=== PATIENT | male | born 1930 | race Caucasian/White ===

== ENCOUNTER 2020-05-14 07:51 | Emergency (ER) | payer MEDICARE, OTHER ==
--- NOTE | 2020-05-14 08:14 | RAD ---
RADIOGRAPH CHEST 1 VIEW: DATE: 05/14/2020 HISTORY: 89-year-old male status post fall. Hypertension. FINDINGS: The thoracic aorta is tortuous and ectatic. There is no evidence of airspace density, pulmonary edema , or pneumothorax. The lateral costophrenic angles are not effaced. No cardiomegaly. IMPRESSION: 1) No acute pulmonary findings. 2) ectasia of thoracic aorta.
[2020-05-14 08:26] LABS: #Lymphocytes 0.8 thou/uL (1.20-3.40); #Monocytes 0.5 thou/uL (0.11-0.59); #Neutrophils 2.7 thou/uL (1.40-6.50); %Basophils 0.8 % (0.0-1.0); %Eosinophils 0.4 % (0.0-10.0); %Lymphocytes 20.5 % (21.0-51.0); %Monocytes 13.2 % (0.0-10.0); %Neutrophils 65.2 % (42.0-75.0); Hemoglobin 12.9 g/dL (14.0-18.0); Mean Corpuscular HGB CONC 33.4 g/dL (32.0-36.0); Mean Corpuscular Hemoglobin 31.7 pg (27.0-31.0); Mean Corpuscular Volume 94.9 fL (78.0-98.0); Mean Platelet Volume 6.4 fL (7.4-10.4); Platelet Count 168 thou/uL (130-400); RBC Distribution Width 11.8 % (11.5-14.5); Red Blood Cell (RBC) Count 4.06 mill/uL (4.70-6.10); White Blood Cell (WBC) Count 4.1 thou/uL (4.8-10.8)
--- NOTE | 2020-05-14 08:44 | CT ---
CT BRAIN NONCONTRAST: DATE: 05/14/2020 HISTORY: 89-year-old male with altered mental status, status post acute head trauma from fall. COMPARISON: 08/30/2015 FINDINGS: There is no evidence of acute intra-axial or extra-axial hemorrhage. There is no midline shift or any other mass effect. There is no extra-axial fluid collection. Chronic ventriculomegaly. There is no evidence of obstructive hydrocephalus. Calvarium is intact. There is diffuse brain parenchymal volume loss. There are low attenuation areas in the white matter. These are nonspecific, but in a patient of this age, they are probably chronic ischemic white matter changes due to microvascular atheroscler osis. No interval change overall. Paranasal sinuses and bilateral tympanomastoid cavities, are clear. IMPRESSION: 1) No acute intracranial findings. 2) involutional changes and chronic ischemic white matter changes.
[2020-05-14 08:47] LABS: ALT (SGPT) 10 U/L (8-55); AST (SGOT) 12 U/L (5-34); Acetaminophen Less than 6.0 mcg/mL (10.0-30.0); Albumin 3.7 g/dL (3.4-4.8); Alcohol Less than 10 mg/dL (Less than 10); Alkaline Phosphatase 81 U/L (40-110); Anion Gap 12 mmol/L (10-20); BUN (Urea Nitrogen) 31 mg/dL (8.4-25.7); Bilirubin, Total 0.4 mg/dL (0.2-1.2); CK (CPK) 61 U/L (30-200); Calc. Creatinine Clearance 0 mL/min (70-130); Calcium 8.3 mg/dL (7.8-10.44); Carbon Dioxide 24 mmol/L (23-31); Chloride 105 mmol/L (98-107); Estimated GFR-MDRD 34; Globulin 4.5 g/dL (2.4-3.5); Glucose 103 mg/dL (83-110); Lipase 117 U/L (8-78); Potassium 4.1 mmol/L (3.5-5.1); Protein, Total 8.2 g/dL (5.8-8.1); Salicylate Less than 8.0 mg/dL (15.0-30.0); Sodium 137 mmol/L (136-145)
[2020-05-14 09:07] LABS: CKMB 1.9 ng/mL (0-6.6)
[2020-05-14 09:34] LABS: Benzodiazepine Screen Detected (NotDetected); Medtox Reader # READER 4; Opiate Screen Detected (NotDetected); Phencyclidine (PCP) Not Detected (NotDetected); THC/Cannabinoid Screen Not Detected (NotDetected)
[2020-05-14 09:35] LABS: Amphetamine Not Detected (NotDetected); Barbiturates Screen Not Detected (NotDetected); Cocaine Metabolite Screen Not Detected (NotDetected); Medtox Control Line Valid? VALID (VALID); Methadone Not Detected (NotDetected); Methamphetamine Not Detected (NotDetected); Oxycodone Screen Not Detected (NotDetected); Tricyclic Screen Not Detected (NotDetected)
[2020-05-14 09:39] LABS: Bacteria/HPF None Seen HPF (None Seen); Bilirubin Negative (Negative); Blood, Urine Trace (Negative); Clarity Clear (Clear); Glucose, Urine (Dipstick) Normal (Negative); Ketone, Urine Negative (Negative); Leukocyte Negative Leu/uL (Negative); Nitrite Negative (Negative); Protein, Urine (Dipstick) 100 mg/dL (Neg-Trace); RBC/HPF 0-3 HPF (0-3); Specific Gravity, Urine 1.015 (1.002-1.036); Squamous Epithelial 0-3 HPF (0-3); Urobilinogen Normal mg/dL (Less than 2); WBC/HPF 0-3 HPF (0-3); pH, Urine 5.5 (5.0-9.0)
--- NOTE | 2020-05-14 10:42 | CT ---
CT ANGIOGRAM CHEST WITH 3D RENDERING: Date: 05/14/2020 HISTORY: Injury from a fall, generalized weakness. Elevated D-Dimer. FINDINGS: There are extensive, fairly diffuse bilateral very faint ground-glass opacity changes versus a very a ccentuated mosaic appearance of the chest, with some linear and interstitial parenchymal changes note d as well, particularly in the mid and lower lung zones. Evidence for nonspecific chronic change vers us subsegmental atelectasis. Three vessel coronary artery calcific disease. No convincing evidence fo r acute pulmonary embolism. No pleural effusion or pericardial effusion. Multiple gallstones within t he dependent portion of the gallbladder, which is borderline distended, but no pericholecystic fat st randing or edematous changes. Small left renal upper pole cyst. IMPRESSION: 1. Extensive patchy very faint ground-glass opacity changes versus extensive mosaic appearance of th e chest, nonspecific. Minimal scattered linear and interstitial parenchymal changes, particularly in the mid and lower lung zones, possibly chronic change and/or subsegmental atelectasis. 2. No convincing CT evidence for acute pulmonary embolism. 3. Cholelithiasis within a distended gallbladder, but no gallbladder wall thickening or pericholecys tic fluid. 4. Other findings as above. POS: RRE
[2020-05-14] MEDS ORDERED: Iopamidol-370 76% 500 ML 1 ML ONE (14:52)
[2020-05-15 12:33] LABS: SARS-CoV-2 MS2 Positive; SARS-CoV-2 N Gene Negative; SARS-CoV-2 S Gene Negative; SARS-CoV-2 orf1ab Negative
== END 2020-05-14 11:10 | disposition home or self-care (01) ==
LOC: ERS 07:51
DX: R53.1 Weakness (principal); R51 Headache; J84.9 Interstitial pulmonary disease, unspecified; Z20.828 Contact with and (suspected) exposure to other viral communicable diseases; I10 Essential (primary) hypertension; Z79.899 Other long term (current) drug therapy
CPT/HCPCS: 70450; 71045; 71275; 80053; 80306; 80307; 82550; 82553; 83690; 84484; 85025; 85379; 93005; 96360; 99285; U0003; 36415; 81003; 81015; 87635; Q9967

== ENCOUNTER 2020-10-12 06:20 | Inpatient (IN) | payer MEDICARE ==
[2020-10-12] MEDS ORDERED: Nitroglycerin 2% Ointment 1 INCH/1 GM Packet ONE (06:37)
[2020-10-12 06:51] LABS: #Monocytes 0.5 thou/uL (0.11-0.59); #Neutrophils 2.2 thou/uL (1.40-6.50); %Basophils 0.3 % (0.0-1.0); %Eosinophils 0.1 % (0.0-10.0); %Lymphocytes 27.1 % (21.0-51.0); %Monocytes 12.8 % (0.0-10.0); %Neutrophils 59.7 % (42.0-75.0); Hemoglobin 12.6 g/dL (14.0-18.0); Mean Corpuscular HGB CONC 33.6 g/dL (32.0-36.0); Mean Corpuscular Hemoglobin 32.2 pg (27.0-31.0); Mean Platelet Volume 6.5 fL (7.4-10.4); Platelet Count 163 thou/uL (130-400); RBC Distribution Width 11.9 % (11.5-14.5); Red Blood Cell (RBC) Count 3.91 mill/uL (4.70-6.10); White Blood Cell (WBC) Count 3.7 thou/uL (4.8-10.8)
[2020-10-12 07:11] LABS: ALT (SGPT) 9 U/L (8-55); AST (SGOT) 12 U/L (5-34); Albumin 3.8 g/dL (3.4-4.8); Alkaline Phosphatase 93 U/L (40-110); Anion Gap 15 mmol/L (10-20); BUN (Urea Nitrogen) 38 mg/dL (8.4-25.7); Bilirubin, Total 0.3 mg/dL (0.2-1.2); CK (CPK) 78 U/L (30-200); Calc. Creatinine Clearance 0 mL/min (70-130); Calcium 7.9 mg/dL (7.8-10.44); Carbon Dioxide 25 mmol/L (23-31); Chloride 106 mmol/L (98-107); Globulin 4.2 g/dL (2.4-3.5); Glucose 115 mg/dL (83-110); Potassium 4.3 mmol/L (3.5-5.1); Sodium 142 mmol/L (136-145)
--- NOTE | 2020-10-12 07:31 | CT ---
Head CT without contrast 10/12/2020: COMPARISON: 05/14/2020 HISTORY: Diffuse pain, drooping of the right side of the face TECHNIQUE: Axial CT imaging at 5 mm intervals from vertex through skull base without contrast FINDINGS: Imaged paranasal sinuses and mastoid air cells appear well-aerated. There is atheroscleroti c calcification of the distal vertebral arteries and the cavernous carotid arteries. No acute osseous abnormality. There is stable periventricular hypodensity suggesting small vessel disease. Stable cerebral volume l oss with associated prominence of the CSF containing spaces. No intracranial hemorrhage, midline shift, or mass effect. IMPRESSION: Stable CT of the head-no acute findings.
[2020-10-12 07:33] LABS: CKMB 2.1 ng/mL (0-6.6)
--- NOTE | 2020-10-12 07:50 | RAD ---
Portable frontal chest radiograph: 10/12/2020 COMPARISON: 05/14/2020 HISTORY: Chest pain FINDINGS: Stable heart and mediastinal contours. Atherosclerotic calcification of the aortic arch not ed. Stable nonspecific linear density in the left base and bilateral perihilar regions. Mild elevation of the right hemidiaphragm. No pneumothorax or pleural fluid. No focal consolidation or alveolar edema. IMPRESSION: Stable appearance of the chest as detailed above.
[2020-10-12 08:28] LABS: Bacteria/HPF None Seen HPF (None Seen); Bilirubin Negative (Negative); Blood, Urine Trace (Negative); Clarity Clear (Clear); Glucose, Urine (Dipstick) Normal (Negative); Ketone, Urine Negative (Negative); Leukocyte Negative Leu/uL (Negative); Nitrite Negative (Negative); Protein, Urine (Dipstick) 200 mg/dL (Neg-Trace); RBC/HPF 0-3 HPF (0-3); Specific Gravity, Urine 1.019 (1.002-1.036); Squamous Epithelial 0-3 HPF (0-3); Urobilinogen Normal mg/dL (Less than 2); WBC/HPF 0-3 HPF (0-3)
[2020-10-12 10:30] LABS: Troponin I 3.238 ng/mL (< 0.028)
[2020-10-12] MEDS ORDERED: Aspirin 325 mg Enteric Coated Tablet PO SCH (11:00)
[2020-10-12] MEDS ORDERED: Acetaminophen 500 MG TAB PO PRN (11:22)
[2020-10-12] MEDS ORDERED: hydrALAZINE 20 MG/ML VIAL SLOW IVP PRN (11:22)
[2020-10-12] MEDS ORDERED: Labetalol HCl 100 MG/20 ML VIAL SLOW IVP PRN (11:22)
--- NOTE | 2020-10-12 11:24 | PDOC.HHP ---
Hospitalist HPI - History of Present Illness History of Present Illness: ADMISSION DATE: 10/12/2020 TIME OF ASSESSMENT: 1030 PRIMARY CARE PHYSICIAN: Zac Driver CHIEF COMPLAINT: Pain all over HPI: Patient is a 89-year-old male past medical history significant for hypertension and a SC. He states that this morning he woke up and had an overall feeling of pain throughout his entire body. He states that even in his jaw and teeth he felt this pain. He told his about it and she felt he might be having a heart attack so they came into the ER. He denies exposure to Covid, fever, shortness of breath, cough. He states he has never experienced pain like this before. Since being in the ER the pain has resolved and he states he feels "fine". ED COURSE: Vital Signs: Blood pressure 129/80, pulse 64, respiratory rate 20, temp 97.9 oral, no pain, O2 saturation 94% on 2 L Today in the ER he had an EKG, chest x-ray, urinalysis, head CT completed. He was administered aspirin 324 mg oral, half a liter of normal saline IV, and nitro 1 inch transdermal. PAST MEDICAL HISTORY: Hypertension, TIA, facial droop at baseline PAST SURGICAL HISTORY: Left total knee replacement SOCIAL HISTORY: Patient lives at home with his of 67 years. Patient uses a cane to ambulate. They deny alcohol, drug, tobacco use. FAMILY HISTORY: Son with Jordy lao ALLERGIES: No known drug allergies CURRENT MEDICATIONS: Patient and are unable to recall his home medications, will work with pharmacy to reconcile list Hospitalist ROS - Review of Systems Constitutional: reports: malaise Cardiovascular: reports: chest pain All other systems reviewed; all pertinent +/- noted in HPI/Subj - Exam General Appearance: NAD, awake alert Neck: supple, symmetric Heart: RRR, no murmur, no gallops, no rubs, normal peripheral pulses Respiratory: CTAB, no wheezes, no rales, no ronchi, normal chest expansion Gastrointestinal: soft, non-tender, non-distended, normal bowel sounds Extremities: no edema Neurological: no focal deficits Musculoskeletal: normal tone Psychiatric: normal affect, normal behavior, A&O x 3 Hospitalist Results - Labs Result Diagrams: 10/12/20 06:41 10/12/20 06:41 Lab results: WBC 3.7 thou/uL (4.8-10.8) L 10/12/20 06:41 Hgb 12.6 g/dL (14.0-18.0) L 10/12/20 06:41 Hct 37.5 % (42.0-52.0) L 10/12/20 06:41 MCV 96.0 fL (78.0-98.0) 10/12/20 06:41 Plt Count 163 thou/uL (130-400) 10/12/20 06:41 Neutrophils % 59.7 % (42.0-75.0) 10/12/20 06:41 Sodium 142 mmol/L (136-145) 10/12/20 06:41 Potassium 4.3 mmol/L (3.5-5.1) 10/12/20 06:41 Chloride 106 mmol/L (98-107) 10/12/20 06:41 Carbon Dioxide 25 mmol/L (23-31) 10/12/20 06:41 BUN 38 mg/dL (8.4-25.7) H 10/12/20 06:41 Creatinine 2.38 mg/dL (0.7-1.3) H 10/12/20 06:41 Glucose 115 mg/dL (83-110) H 10/12/20 06:41 Calcium 7.9 mg/dL (7.8-10.44) 10/12/20 06:41 Total Bilirubin 0.3 mg/dL (0.2-1.2) 10/12/20 06:41 AST 12 U/L (5-34) 10/12/20 06:41 ALT 9 U/L (8-55) 10/12/20 06:41 Alkaline Phosphatase 93 U/L (40-110) 10/12/20 06:41 Creatine Kinase 78 U/L (30-200) 10/12/20 06:41 CK-MB (CK-2) 2.1 ng/mL (0-6.6) 10/12/20 06:41 Troponin I 3.238 ng/mL (< 0.028) H* 10/12/20 09:51 B-Natriuretic Peptide 278.1 pg/mL (0-100) H 10/12/20 06:41 Serum Total Protein 8.0 g/dL (5.8-8.1) 10/12/20 06:41 Albumin 3.8 g/dL (3.4-4.8) 10/12/20 06:41 Urine Ketones Negative mg/dL (Negative) 10/12/20 07:40 Urine Blood Trace (Negative) A 10/12/20 07:40 Urine Nitrite Negative (Negative) 10/12/20 07:40 Ur Leukocyte Esterase Negative Bryon/uL (Negative) 10/12/20 07:40 Urine RBC 0-3 HPF (0-3) 10/12/20 07:40 Urine WBC 0-3 HPF (0-3) 10/12/20 07:40 Ur Squamous Epith Cells 0-3 HPF (0-3) 10/12/20 07:40 Urine Bacteria None Seen HPF (None Seen) 10/12/20 07:40 - EKG Interpretation EKG: PVC 77bpm - Radiology Interpretation Chest x-ray Status: image reviewed by me, report reviewed by me Additional Comment: FINDINGS: Stable heart and mediastinal contours. Atherosclerotic calcification of the aortic arch noted. Stable nonspecific linear density in the left base and bilateral perihilar regions. Mild elevation of the right hemidiaphragm. No pneumothorax or pleural fluid. No focal consolidation or alveolar edema. IMPRESSION: Stable appearance of the chest as detailed above. CT scan - head Status: report reviewed by me Additional Comment: FINDINGS: Imaged paranasal sinuses and mastoid air cells appear well-aerated. There is atherosclerotic calcification of the distal vertebral arteries and the cavernous carotid arteries. No acute osseous abnormality. There is stable periventricular hypodensity suggesting small vessel disease. Stable cerebral volume loss with associated prominence of the CSF containing spaces. No intracranial hemorrhage, midline shift, or mass effect. IMPRESSION: Stable CT of the head-no acute findings. Hospitalist H&P A/P - Plan Plan: NSTEMI Troponin 0.126 initially then elevated to 3.238denies chest pain or shortness of breath currently Cardiology consult Has received full dose aspirin in ER Nitro patch in place Magnesium and TSH ordered Continue to trend troponins Monitor on telemetry Vital signs every 4 hour SUSANNE on CKD Creatinine elevated to 2.38previous in May was 1.88 GFR 26 todaypreviously was in the 30s range Gentle hydration Hypertension Monitor vital signs every 4 hours Restart home medications once confirmed As needed antihypertensives available VTE prophylaxis in place with SCDs CODE STATUS: DNR Patient is have advanced directives in place that state neither want to be resuscitated if such an unfortunate event were to arise, states that family knows of their wishes and that they wish to honor that with each other Surrogate decision maker is his Briana
[2020-10-12 11:52] VITALS: BMI 22.8
[2020-10-12] MEDS: Sodium Chloride 0.9% 1,000 ML IV SCH (12:56)
[2020-10-12 13:15] LABS: Troponin I 7.391 ng/mL (< 0.028)
[2020-10-12] MEDS ORDERED: Heparin 25,000 units/D5W 500 ML IVPB SCH (13:30)
[2020-10-12] MEDS ORDERED: Heparin 10,000 UNITS/ 10 ML VIAL SLOW IVP SCH (13:30)
[2020-10-12 14:02] LABS: Hemoglobin 10.9 g/dL (14.0-18.0); Platelet Count 145 thou/uL (130-400)
[2020-10-12] MEDS: Nitroglycerin 2% Ointment 1 INCH/1 GM Packet TOP SCH ×2 (18:30→21:21)
[2020-10-12 19:40] LABS: PTT 127.2 sec (22.9-36.1)
[2020-10-12 20:02] LABS: Troponin I 10.343 ng/mL (< 0.028)
--- NOTE | 2020-10-12 23:13 | CON ---
DATE OF CONSULTATION: PRIMARY DELIVERY PERSON: Dr. Keira Crockett. REASON FOR CONSULTATION: Non-ST elevation myocardial infarction. HISTORY OF PRESENT ILLNESS: Mr. Douglas Robles is a very pleasant gentleman with history of coronary artery disease. Unfortunately [employer] is down and all the details are in terms of the reports that are available. The patient does have a history of coronary artery disease. The patient was seen most recently in the office by Annie. He was stable at that time with no chest pain or pressure. MEDICATIONS: 1. Amlodipine 5 mg a day. 2. Toprol-XL 100 mg a day. 3. Aspirin 81 mg a day. Cardiac catheterization was done in the past. There was angioplasty of an obtuse marginal in 1997. Otherwise, the patient has been doing well. REVIEW OF SYSTEMS: CONSTITUTIONAL: Feels awake and alert now. VISION: No changes. HEARING: No changes. PULMONARY: No cough or wheezing. GASTROINTESTINAL: No nausea, vomiting, diarrhea. SKIN: No rashes. NEUROLOGIC: No unilateral weakness or numbness. PSYCHIATRIC: No unusual depression, anxiety. PHYSICAL EXAMINATION: VITAL SIGNS: His blood pressure 130/60, pulse 64 and regular. LUNGS: Clear. CARDIAC: Normal S1, normal S2. ABDOMEN: Soft and nontender. EXTREMITIES: There is no edema. EKG shows no acute changes. Troponin level 7.39. Creatinine 2.38. ASSESSMENT: 1. Status post tlh-WL-[id number] myocardial infarction, asymptomatic now. 2. Renal failure stage 4. PLAN: 1. He is on intravenous heparin. 2. He is on aspirin. 3. Dr. Crockett to resume tomorrow for further therapy. Unfortunately, computer is completely down right now, therefore, no other report could be accessed. Dr. Crockett will check tomorrow. Job ID: [id number]
[2020-10-13] MEDS: Nitroglycerin 0.4 MG TAB (25 Tab Bottle) SL PRN ×3 (00:33→00:50)
[2020-10-13 01:54] LABS: Critical Call Chem Troponin I RESULT DECREASING
[2020-10-13 05:20] LABS: Anion Gap 15 mmol/L (10-20); BUN (Urea Nitrogen) 31 mg/dL (8.4-25.7); Calc. Creatinine Clearance 27 mL/min (70-130); Calcium 7.6 mg/dL (7.8-10.44); Carbon Dioxide 20 mmol/L (23-31); Cardiac Risk 4.9 (Less than 4.5); Chloride 109 mmol/L (98-107); Cholesterol 143 mg/dl (< 200 Desired); Glucose 109 mg/dL (83-110); HDL Cholesterol 29 mg/dL (>60 Neg Risk); LDL Cholesterol, Calculated 90 mg/dL; Potassium 4.2 mmol/L (3.5-5.1); Sodium 140 mmol/L (136-145); Triglycerides 121 mg/dL (Less than 150)
[2020-10-13 05:32] LABS: Critical Call Chem Troponin I RESULT DECREASING
[2020-10-13 05:48] LABS: Band 13 % (5-11); Hemoglobin 11.1 g/dL (14.0-18.0); Lymphocytes 27 % (21-51); MDiff Complete? YES; Mean Corpuscular HGB CONC 34.8 g/dL (32.0-36.0); Mean Corpuscular Hemoglobin 33.2 pg (27.0-31.0); Mean Corpuscular Volume 95.4 fL (78.0-98.0); Mean Platelet Volume 6.6 fL (7.4-10.4); Monocytes 12 % (0-10); Neutrophil 48 % (42-75); Platelet Count 146 thou/uL (130-400); RBC Distribution Width 11.8 % (11.5-14.5); Red Blood Cell (RBC) Count 3.33 mill/uL (4.70-6.10); White Blood Cell (WBC) Count 4.8 thou/uL (4.8-10.8)
[2020-10-13] MEDS: Nitroglycerin 2% Ointment 1 INCH/1 GM Packet TOP SCH ×2 (05:53→14:27)
[2020-10-13 05:55] LABS: CKMB 17.1 ng/mL (0-6.6)
[2020-10-13] MEDS: Sodium Chloride 0.9% 1,000 ML IV SCH (08:41)
[2020-10-13] MEDS ORDERED: Aspirin 325 mg Enteric Coated Tablet PO SCH (09:00)
[2020-10-13 09:42] LABS: SARS-CoV-2 MS2 Positive; SARS-CoV-2 N Gene Negative; SARS-CoV-2 S Gene Negative; SARS-CoV-2 by NAA Not Detected (NotDetected); SARS-CoV-2 orf1ab Negative
--- NOTE | 2020-10-13 10:28 | PDOC.HOSPP ---
- Subjective Encounter Date: 10/13/20 Encounter Time: : Subjective: Patient seen for follow-up today for NSTEMI and SUSANNE superimposed on CKD. Patient is slightly confused this morning, he is oriented to person and time even to date however is not oriented to place. He states this is a political scam and that he is in a mobile home. His son in the room and he recognized him immediately. His son, SAYRA, states that the patient's father had Alzheimer's and that at times Mr. Robles will become confused to place. Patient states he is feeling well today, no overnight events reported. Chart and medications reviewed at this time. - Objective Vital Signs & Weight: Vital Signs (12 hours) Temp Pulse Resp BP BP Pulse Ox 10/13/20 07:44 97.6 F 99 18 138/89 96 10/13/20 03:47 98.2 F 73 18 139/72 95 10/12/20 23:50 66 167/77 H Weight Weight 159 lb I&O: 10/12/20 10/13/20 10/14/20 06:59 06:59 06:59 Intake Total 840 Output Total 500 Balance 340 Result Diagrams: 10/13/20 04:33 10/13/20 04:33 EKG Reviewed by me: Yes Hospitalist ROS - Medication Medications: Active Medications Generic Name Dose Route Start Last Admin Trade Name Freq PRN Reason Stop Dose Admin Acetaminophen 1,000 mg 10/12/20 11:22 10/12/20 21:34 Acetaminophen 500 Mg Tab PO 1,000 mg Q6H PRN Administration Mild Pain (1-3) Aspirin 325 mg 10/13/20 09:00 10/13/20 08:41 Aspirin 325 Mg Enteric Coated Tablet PO 325 mg DAILY SETH Administration Heparin Sodium (Porcine) 0 units 10/12/20 13:30 10/13/20 02:49 Heparin 10,000 Units/ 10 Ml Vial SLOW IVP 2,000 unit ASDIR SETH Administration Protocol Sodium Chloride 1,000 mls @ 50 mls/hr 10/12/20 10:45 10/13/20 08:41 Normal Saline 0.9% IV 1,000 mls .Q20H SETH Administration Nitroglycerin 0.5 inch 10/12/20 14:00 10/13/20 05:53 Nitroglycerin 2% Ointment 1 Inch/1 Gm Packet TOP 0.5 inch Q8HR SETH Administration Nitroglycerin 0.4 mg 10/12/20 11:22 10/13/20 00:50 Nitroglycerin 0.4 Mg Tab (25 Tab Bottle) SL 1 tab Q5MIN PRN Administration Chest Pain - Exam General Appearance: NAD, awake alert ENT: normocephalic atraumatic Heart: RRR, no murmur, no gallops, no rubs Respiratory: CTAB, no wheezes, no rales, no ronchi, no tachypnea Gastrointestinal: soft, non-tender, non-distended, normal bowel sounds Extremities: no edema Neurological: no focal deficits Psychiatric: normal behavior (Very friendly and conversive), oriented to person, oriented to time Hosp A/P - Plan NSTEMI Currently on heparin drip Cardiology consult- Dr Crockett following patient today- await recommendations Continue aspirin Nitro patch to continue Monitor on telemetry Vital signs every 4 hour SUSANNE on CKD Gentle hydration Slight improvement in renal function this am- back to baseline levels Hypertension Monitor vital signs every 4 hours Home medications restarted As needed antihypertensives available
[2020-10-13 16:01] VITALS: BP 165/79; TEMP 98.8
[2020-10-13] MEDS ORDERED: Clopidogrel Bisulfate 75 MG TAB PO SCH (17:00)
--- NOTE | 2020-10-13 18:39 | PDOC.DS.DS ---
Provider - Provider Date of Admission: 10/12/20 11:09 Date of Discharge: 10/13/20 Admitting Provider: Luis Marks MD Consultations: Cardiology Primary Care Physician: Zac Driver MD Course - Hospital Course Hospital Course: Patient is a 89-year-old male past medical history significant for hypertension and [place]. He woke up yesterday and had overall feeling of pain throughout his entire body. He arrived to the ER and felt that he might be having a heart attack. Troponins resulted high and cardiology was consulted. Patient was started on a heparin drip and monitored on telemetry overnight. Echo was completed morning of discharge that showed EF of 50 to 55%. Treatment plans were discussed with family at bedside. It was decided to do medical management versus having a heart cath. Cardiology changed some of his medications and amadeo salazar was comfortable with going home. Patient is to have a follow-up with his primary care doctor and cardiology as discussed in discharge. - Labs Lab Results: 10/13/20 04:33 10/13/20 04:33 Abnormal Lab Results - Last 48 hrs 10/12/20 06:41: WBC 3.7 L, RBC 3.91 L, Hgb 12.6 L, Hct 37.5 L, MCH 32.2 H, MPV 6.5 L, Monocytes % 12.8 H, Lymphocytes # 1.0 L 10/12/20 06:41: Troponin I 0.126 H 10/12/20 06:41: BUN 38 H, Creatinine 2.38 H, Globulin 4.2 H, Albumin/Globulin Ratio 0.9 L 10/12/20 06:41: B-Natriuretic Peptide 278.1 H 10/12/20 07:40: Urine Protein 200 A, Urine Blood Trace A 10/12/20 09:51: Troponin I 3.238 H* 10/12/20 12:17: Troponin I 7.391 H* 10/12/20 13:32: Hgb 10.9 L, Hct 31.9 L 10/12/20 15:15: Troponin I 10.343 H* 10/12/20 19:15: APTT 127.2 H* 10/13/20 01:16: APTT 51.5 H 10/13/20 01:16: CK-MB (CK-2) 21.0 H*, Troponin I 5.136 H* 10/13/20 04:33: Chloride 109 H, Carbon Dioxide 20 L, BUN 31 H, Creatinine 1.91 H, Calcium 7.6 L 10/13/20 04:33: RBC 3.33 L, Hgb 11.1 L, Hct 31.8 L, MCH 33.2 H, MPV 6.6 L, Band Neuts % (Manual) 13 H, Monocytes % (Manual) 12 H 10/13/20 04:33: CK-MB (CK-2) 17.1 H*, Troponin I 4.987 H* 10/13/20 09:37: APTT 80.6 H 10/13/20 15:23: APTT 67.6 H - Physical Exam Vitals: Vital Signs (12 hours) Temp Pulse Resp BP BP Pulse Ox 10/13/20 16:01 98.8 F 165/79 H 10/13/20 15:32 97.6 F 94 22 H 95 10/13/20 11:50 97.8 F 102 H 18 157/92 H 96 10/13/20 07:44 97.6 F 99 18 138/89 96 Weight Weight 159 lb Physical Exam: The patient was seen and examined on the day of discharge. Problem - Problem (1) NSTEMI (non-ST elevated myocardial infarction) Code(s): I21.4 - NON-ST ELEVATION (NSTEMI) MYOCARDIAL INFARCTION Status: Acute (2) SUSANNE (acute kidney injury) Code(s): N17.9 - ACUTE KIDNEY FAILURE, UNSPECIFIED Status: Acute (3) HTN (hypertension) Code(s): I10 - ESSENTIAL (PRIMARY) HYPERTENSION Status: Chronic - Time spent with Patient (mins): 20 Plan - Discharge Medications Prescriptions: Atorvastatin Calcium [Lipitor] 40 mg PO HS #30 tab Clopidogrel Bisulfate [Plavix] 75 mg PO DAILY #30 tab Metoprolol Succinate [Toprol XL] 200 mg PO DAILY #60 tab Home Medications: Medication Instructions Recorded Confirmed Type HYDROcodone Bit/APAP 5/325 [[place]] 1 tab PO BID 08/30/15 10/12/20 History Acetaminophen [Tylenol Regular 650 mg PO Q4H PRN #0 tab 08/31/15 10/12/20 Rx Strength] Amlodipine [Norvasc] 5 mg PO DAILY #0 tab 08/31/15 10/12/20 Rx Atorvastatin Calcium [Lipitor] 40 mg PO HS #30 tab 10/13/20 Rx Clopidogrel Bisulfate [Plavix] 75 mg PO DAILY #30 tab 10/13/20 Rx Metoprolol Succinate [Toprol XL] 200 mg PO DAILY #60 tab 10/13/20 Rx Allergies: No Known Drug Allergies Allergy (Verified 08/30/15 19:37) PER ORDER - Follow up Plan Referrals: Zac Driver MD [Primary Care Provider] - 10/20/20 3:30 pm Shahid Crockett MD [Active] - 2-3 Weeks ( CALL FOR FOLLOW-UP APPOINTMENT ) Disposition: HOME Quality - Care Measures CORE MEASURES:: AMI - Stroke/TIA Did you prescribe antithrombotic therapy?: Yes Did you prescribe a statin medication?: Yes
[2020-10-13] MEDS ORDERED: Atorvastatin Calcium 40 MG TAB PO SCH (21:00)
[2020-10-14] MEDS ORDERED: Clopidogrel Bisulfate 75 MG TAB PO SCH (09:00)
[2020-10-14] MEDS ORDERED: Amlodipine 5 MG TAB PO SCH (09:00)
== END 2020-10-13 18:25 | disposition home or self-care (01) | DRG 281 ==
LOC: ERS 06:20 → 2NO 11:09
PROVIDERS: ADMIT Internal Medicine; ATTEND Hospitalist
DX: I21.4 Non-ST elevation (NSTEMI) myocardial infarction (principal); N17.9 Acute kidney failure, unspecified; N18.4 Chronic kidney disease, stage 4 (severe); Z66 Do not resuscitate; Z20.828 Contact with and (suspected) exposure to other viral communicable diseases; E86.0 Dehydration; I12.9 Hypertensive chronic kidney disease with stage 1 through stage 4 chronic kidney disease, or unspecified chronic kidney disease; Z96.652 Presence of left artificial knee joint; I25.2 Old myocardial infarction; Z86.73 Personal history of transient ischemic attack (TIA), and cerebral infarction without residual deficits
CPT/HCPCS: 36415; 36416; 70450; 71045; 80048; 80053; 80061; 81003; 81015; 82550; 82553; 83735; 83880; 84443; 84484; 85025; 85730; 87635; 93005; 93010; 93306; 94760; J1644; U0003

== ENCOUNTER 2020-11-13 12:54 | Inpatient (IN) | payer MEDICARE ==
[2020-11-13] MEDS ORDERED: Nitroglycerin 0.4 MG TAB 1 EACH ONE (13:06)
--- NOTE | 2020-11-13 13:32 | RAD ---
AP CHEST: Date: 11/13/2020 HISTORY: Shoulder and chest pain. COMPARISON: 10/12/2020. FINDINGS: Heart size within normal range. The vascular and interstitial markings remain prominent, similar to t he prior study. Interstitial and hazy alveolar infiltrates of the lower lungs cannot be excluded, but the findings appear relatively stable. There is no consolidation or confluent opacity. No significan t effusion. Osseous structures unremarkable. IMPRESSION: Stable chest findings. POS: AGW
[2020-11-13 13:45] LABS: Hemoglobin 12.3 g/dL (14.0-18.0); Mean Corpuscular HGB CONC 35.6 g/dL (32.0-36.0); Mean Corpuscular Hemoglobin 33.3 pg (27.0-31.0); Mean Corpuscular Volume 93.5 fL (78.0-98.0); Mean Platelet Volume 6.5 fL (7.4-10.4); Platelet Count 201 thou/uL (130-400); RBC Distribution Width 12.2 % (11.5-14.5); Red Blood Cell (RBC) Count 3.68 mill/uL (4.70-6.10); White Blood Cell (WBC) Count 4.4 thou/uL (4.8-10.8)
[2020-11-13 14:01] LABS: ALT (SGPT) 8 U/L (8-55); AST (SGOT) 14 U/L (5-34); Albumin 3.4 g/dL (3.4-4.8); Alkaline Phosphatase 96 U/L (40-110); Anion Gap 16 mmol/L (10-20); BUN (Urea Nitrogen) 30 mg/dL (8.4-25.7); Bilirubin, Total 0.3 mg/dL (0.2-1.2); Calc. Creatinine Clearance 0 mL/min (70-130); Calcium 8.1 mg/dL (7.8-10.44); Carbon Dioxide 23 mmol/L (23-31); Chloride 104 mmol/L (98-107); Globulin 4.5 g/dL (2.4-3.5); Glucose 135 mg/dL (83-110); Potassium 4.3 mmol/L (3.5-5.1); Protein, Total 7.9 g/dL (5.8-8.1); Sodium 139 mmol/L (136-145)
[2020-11-13 14:11] LABS: Band 22 % (5-11); Lymphocytes 7 % (21-51); MDiff Complete? YES; Monocytes 7 % (0-10); Neutrophil 63 % (42-75); Platelet Morphology Comment Appears Adequate; RBC Morphology Normal; Reactive Lymphocytes 1 % (0-10)
[2020-11-13] MEDS ORDERED: Aspirin Chewable 81 MG TAB ONE (14:23)
[2020-11-13] MEDS ORDERED: Nitroglycerin 2% Ointment 1 INCH/1 GM Packet ONE (14:23)
[2020-11-13] MEDS ORDERED: Heparin 25,000 units/D5W 500 ML ONE (14:41)
[2020-11-13 15:12] LABS: PTT 38.2 sec (22.9-36.1); Prothrombin Time 13.4 sec (12.0-14.7)
[2020-11-13] MEDS ORDERED: Senokot S 8.6-50 MG TAB PO PRN (15:34)
[2020-11-13] MEDS ORDERED: Ondansetron ODT 4 MG TAB PO PRN (15:34)
[2020-11-13] MEDS ORDERED: Acetaminophen 650 MG Suppository PR PRN (15:34)
[2020-11-13] MEDS ORDERED: Ondansetron PF 4 MG/2 ML Vial IVP PRN (15:34)
[2020-11-13] MEDS ORDERED: Heparin 25,000 units/D5W 500 ML IVPB SCH (15:45)
[2020-11-13] MEDS ORDERED: Heparin 10,000 UNITS/ 10 ML VIAL SLOW IVP SCH (15:45)
[2020-11-13] MEDS ORDERED: Nitroglycerin 0.4 MG TAB (25 Tab Bottle) SL PRN (16:00)
[2020-11-13 16:30] LABS: Hemoglobin 11.5 g/dL (14.0-18.0); Platelet Count 199 thou/uL (130-400)
--- NOTE | 2020-11-13 17:13 | HP ---
CHIEF COMPLAINT: Chest pain. HISTORY OF PRESENT ILLNESS: An 89-year-old male with a history of hypertension and [place] in the past, presented with chest pain this morning. The initial evaluation showed troponin was 0.751 and EKG changes in the inferior lead. His BNP also 467.9. The patient was admitted on October 12 for similar presentation. At that time, he was opted for medical management. Currently, Dr. Contreras talked to Dr. Mclaughlin regarding this NSTEMI and plan to continue with medical management. He does have a creatinine of 2.38, which seems to be similar like in October, so new baseline somewhere around 2.3. His echo done in October showed EF of 55%. I am going to bring him in for medical management of NSTEMI. We will admit him in the ekg monitor tech. I talked to his also. Both seemed to be burdened with advanced age and hard of hearing. REVIEW OF SYSTEMS: 13-point review of systems reviewed. The patient did not have any recent fever, night sweats, chills, or productive cough. The patient does complain of headache, mostly at the back of the neck. He denies any nausea, vomiting, abdominal pain, constipation, diarrhea, hematuria, dysuria, or hematochezia. No urinary symptoms. He denies any blurriness. No new weakness that is different from his baseline. ALLERGIES: THE PATIENT HAS NO KNOWN DRUG ALLERGY. PAST MEDICAL HISTORY: Hypertension, TIA, facial droop at baseline. PAST SURGICAL HISTORY: Left total knee replacement. SOCIAL HISTORY: No alcohol or drug abuse. No smoking. FAMILY HISTORY: Son has atrial fibrillation. MEDICATIONS: 1. Toprol-XL 200 mg daily. 2. [place] 1 tablet twice a day. 3. Plavix 75 mg daily. 4. Lipitor 40 mg at bedtime. 5. Norvasc 5 mg daily. 6. Tylenol as needed. PHYSICAL EXAMINATION: VITAL SIGNS: He is afebrile, normotensive in the monitor. He also has sinus rhythm. GENERAL: He appears well. He denies chest pain at this time. at bedside. Very pleasant couple in advanced age. HEENT: Pupils are equal, round, and reactive to light. Anicteric. Mucous membranes moist. CARDIOVASCULAR: Regular rate and rhythm without murmurs, rubs, or gallops. LUNGS: Clear to auscultation bilaterally without wheezing, rales, or rhonchi. ABDOMEN: Soft, nontender, nondistended. Good bowel sounds. EXTREMITIES: Without much edema. LABORATORY DATA: His troponin is 0.751. BNP 467. Creatinine 2.39. Rest of the chemistry panel in the normal range. His CBC; WBC of 4.4, hemoglobin 12.3, and platelets 201. Chest x-ray, lower lobe infiltrate. EKG; ST-T wave changes in the inferior leads. IMPRESSION AND PLAN: An 89-year-old male with a history of hypertension, presenting with followin. History of hypertension and myocardial infarction in October 2020, opted for medical management at that time, presenting with the [id number] elevation myocardial infarction. 2. Hypertension. 3. Chronic kidney disease, stage 4. The patient will be admitted in the telemetry monitoring, serial troponin. The ER physician, Dr. Contreras talked to Dr. Mclaughlin and medical management for NSTEMI. Given his GFR of 26 and creatinine 2.39 which is not much different from the creatinine level in October, I am going to opt for heparin drip protocol for ACS for 48 hours. Meanwhile, continue with his Plavix and start him on Lipitor as well as Toprol. Given his advanced age, Palliative would be appropriate at this time. Rest of the management based on clinical course. Nitroglycerin p.r.n. for chest pain. Defer further management including echo as we just got in October. Code status discussed both with patient and . DALE. Job ID: [id number] MTDD
[2020-11-13 17:18] VITALS: BMI 23.4
--- NOTE | 2020-11-13 17:18 | PDOC.BPN ---
- Brief Progress Note Hazy infilterates in the lower lungs/CXR -- empiric CTX.
--- NOTE | 2020-11-13 17:37 | PDOC.BPN ---
- Brief Progress Note pt's 2nd set of trop >5 i saw him again, pt denies any CP, he has nitro paste. i talk to both pt and his . both confirmed his code - DNAR.
[2020-11-13] MEDS: cefTRIAXone\\ROCEPHIN 1 GM in Sodium Chloride 0.9% 100 ML IVPB SCH (17:47)
[2020-11-13] MEDS: Acetaminophen 325 MG TAB PO PRN (17:58)
[2020-11-13] MEDS: Atorvastatin Calcium 40 MG TAB PO SCH (20:43)
[2020-11-13] MEDS: HYDROcodone/Acetaminophen 5/325 mg Tablet PO SCH (20:43)
[2020-11-13 20:45] LABS: PTT 117.9 sec (22.9-36.1)
[2020-11-13 22:52] LABS: CKMB 33.2 ng/mL (0-6.6)
[2020-11-14 03:27] LABS: Band 9 % (5-11); Hemoglobin 11.6 g/dL (14.0-18.0); Hypochromia SLIGHT = 6-15 cells (100X) (0-5/hpf); Lymphocytes 28 % (21-51); MDiff Complete? YES; Mean Corpuscular HGB CONC 34.6 g/dL (32.0-36.0); Mean Corpuscular Hemoglobin 32.2 pg (27.0-31.0); Mean Corpuscular Volume 93.2 fL (78.0-98.0); Mean Platelet Volume 6.3 fL (7.4-10.4); Monocytes 12 % (0-10); Neutrophil 51 % (42-75); Platelet Count 196 thou/uL (130-400); Platelet Morphology Comment Appears Adequate; Red Blood Cell (RBC) Count 3.61 mill/uL (4.70-6.10); White Blood Cell (WBC) Count 4.4 thou/uL (4.8-10.8)
[2020-11-14 03:46] LABS: ALT (SGPT) 9 U/L (8-55); AST (SGOT) 33 U/L (5-34); Albumin 3.2 g/dL (3.4-4.8); Alkaline Phosphatase 86 U/L (40-110); Anion Gap 16 mmol/L (10-20); BUN (Urea Nitrogen) 28 mg/dL (8.4-25.7); Bilirubin, Total 0.3 mg/dL (0.2-1.2); Calc. Creatinine Clearance 23 mL/min (70-130); Calcium 7.9 mg/dL (7.8-10.44); Carbon Dioxide 22 mmol/L (23-31); Chloride 105 mmol/L (98-107); Globulin 4.3 g/dL (2.4-3.5); Glucose 120 mg/dL (83-110); Potassium 3.9 mmol/L (3.5-5.1); Protein, Total 7.5 g/dL (5.8-8.1); Sodium 139 mmol/L (136-145)
[2020-11-14] MEDS: Acetaminophen 325 MG TAB PO PRN ×2 (04:41→18:35)
[2020-11-14] MEDS: Clopidogrel Bisulfate 75 MG TAB PO SCH (08:09)
[2020-11-14] MEDS: HYDROcodone/Acetaminophen 5/325 mg Tablet PO SCH ×2 (08:09→20:41)
[2020-11-14] MEDS: Aspirin 81 mg Enteric Coated Tablet PO SCH (08:09)
[2020-11-14] MEDS: Amlodipine 5 MG TAB PO SCH (08:09)
[2020-11-14] MEDS ORDERED: FLU VACC QS2020-21(65YR UP)/PF 240 MCG/0.7 ML SYRINGE IM ONE (09:00)
[2020-11-14] MEDS: Heparin 10,000 UNITS/ 10 ML VIAL SLOW IVP SCH (11:25)
--- NOTE | 2020-11-14 13:23 | CON ---
DATE OF CONSULTATION: 11/14/2020 INDICATIONS FOR CONSULTATION: An 89-year-old patient with known coronary artery disease who has undergone angioplasty in the past to the left circumflex I believe. He had only angioplasty. No stents were placed. He was seen also recently in the hospital later last year and toward the end of the year. I believe he was here on October 13, approximately 1 month ago with chest discomfort. At that time, we opted to treat him medically. He has some dementia. At that time, he wanted to be DNR and also had a history of known coronary artery disease which is stabilized. His cardiac enzymes were slightly elevated at that time, but would not critical. It was felt to be a [id number]-GX-[id number] elevation myocardial infarction. The peak troponin I in October was 10.3. At this time, he presents again complaining of what he describes as being pain in his back radiating down to the arms and at times he says the pain is all over. He has leg pain. He says the pain usually occurs after he eats dinner at night while he is sitting down and on the sofa. He then developed the pain. It lasts a couple hours and then resolves. He has been taking Advil, arthritis, for the discomfort and this does help. He has not been taking nitroglycerin and he again presented yesterday after he had pain for several hours apparently and stated that he was having pain all over. He did not have any shortness of breath associated with it. He said usually it does not involve his chest, but however, his cardiac enzymes on admission was 0.75, has increased up to 5.7 and the most recent one at 10 o'clock last night was 13.5 on the troponin I which is definitely compatible with a bub-PV-[id number] elevation myocardial infarction. His EKG does not show any acute changes. 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 He is somewhat demented and sometimes he is clear than others. When he arrived this time, he wanted to be a DNR, however, he has now rescinded that and wants to have a full code and everything that can be done. I had a long discussion with him about possible cardiac catheterization, but he would need to have IV fluids on board in order to decrease the risk of further renal damage. He does have chronic renal insufficiency and his creatinine is 2.27, and I have explained to him that should we proceed with cardiac catheterization is possible that he could have further renal insufficiency. Thus, he will need to have fluid on board at least diminished that possibility. He will discuss this with his son and think about it and decide whether or not he wishes to proceed with cardiac catheterization. This could be done as early as tomorrow or Saturday depending on the progress of the patient. At this time, he is pain free. He is very comfortable, was wanting to know when he could go home. PAST MEDICAL AND SURGICAL HISTORY: Significant for coronary artery disease, history of hypertension, history of dyslipidemia, history of coronary disease as noted above. He has had angioplasty. He has had not had any bypass. He has had a left total knee replacement. SOCIAL HISTORY: There is no history of alcohol or tobacco abuse. He continues to do some work on the [employer] with [employer]. FAMILY HISTORY: Noncontributory given his age and his known coronary artery disease. ALLERGIES: NONE. MEDICATIONS: Include: 1. Toprol-XL 200 mg a day. 2. He takes [place] twice a day. 3. Plavix 75 mg a day. 4. Lipitor 40 mg a day. 5. Norvasc 5 mg a day. 6. Tylenol p.r.n. 7. Advil as needed. I have suggested to him that he stop taking Advil due to his renal insufficiency. REVIEW OF SYSTEMS: Whether or not this is accurate due to his some dementia, but he does not have any new complaints except for the back pain, arm pains, and then the pain when he hurts all over. He denied any kidney problems. No GI problems. No neurological problems. No seizures or syncope. He has had no recent pulmonary infections. PHYSICAL EXAMINATION: GENERAL: Reveals an elderly gentleman. VITAL SIGNS: Blood pressure is 136/82. He is afebrile. Heart rate is 75. This shows a sinus rhythm. Respiratory rate is 18. O2 saturation is 94% on room air. HEENT: Shows the head to be normocephalic and atraumatic. Carotid pulses are present. I do not hear any bruits. CHEST: Clear to auscultation without rales, rhonchi, or wheezing. CARDIOVASCULAR: Reveals a regular rate and rhythm. There were no gross murmurs, heaves, thrills, bruits, or rubs noted. ABDOMEN: Soft and nontender. Positive bowel sounds are present. EXTREMITIES: Show no clubbing, cyanosis, or edema. He has pedal pulses which are present. NEUROLOGICAL: He has some degree of dementia, but there were no gross focal motor deficits that were noted. SKIN: Warm and dry. His back did show evidence of some abnormalities of the lower back, which appears to be some orthopedic type abnormality, but he denied any significant tenderness when I palpated this area. LABORATORY DATA: Shows the potassium of 3.9, sodium 139, BUN was 28, creatinine 2.27, blood sugar was 120. His WBC is 4.4, hemoglobin 11.6, platelet count was 196,000. Troponin I as noted above. He had an echocardiogram on October 13, 2020, which showed ejection fraction of 50% to 55%. with evidence of diastolic dysfunction. His chest x-ray shows no acute changes. IMPRESSION AND PLAN: 1. Bom-SW-fpihovm elevation myocardial infarction in an elderly gentleman with known coronary artery disease. I have discussed with him this is the 2nd admission for him for chest pain that we may need to proceed with cardiac catheterization once he is given IV fluids to decrease the risk of renal progression or renal insufficiency or renal failure and he will discuss this with his family and decide whether or not he wishes to proceed with cardiac catheterization. 2. History of dementia. This will be dealt by the primary care service. He is not on any medications for this. He may need some Namenda or something of that sort. 3. History of hypertension. Blood pressure is under reasonable control at this time. He did have some slight elevation of blood pressure earlier of 174/85, but now the blood pressure is stable at 136/82. 4. History of dyslipidemia. He will continue on Lipitor. We will continue to monitor the patient very carefully. We will repeat another set of enzymes and should the patient developed EKG changes or chest pain and I would advise for more urgent cardiac catheterization. Job ID: [id number]
--- NOTE | 2020-11-14 15:48 | PDOC.HOSPP ---
- Subjective Encounter Date: 11/14/20 Encounter Time: 11:00 Subjective: Patient up in bed denies any complaints currently. - Objective Vital Signs & Weight: Vital Signs (12 hours) Temp Pulse Resp BP Pulse Ox 11/14/20 11:27 97.4 F L 81 18 149/77 H 93 L 11/14/20 08:08 98.1 F 75 18 136/82 94 L 11/14/20 04:35 74 162/78 H 11/14/20 04:00 97.3 F L 82 16 174/85 H 100 Weight Weight 159 lb I&O: 11/13/20 11/14/20 11/15/20 06:59 06:59 06:59 Intake Total 400.8 Output Total 225 Balance 175.8 Result Diagrams: 11/14/20 03:05 11/14/20 03:05 Additional Labs: Accuchecks 11/14/20 06:58 POC Glucose 123 H Hospitalist ROS - Review of Systems Cardiovascular: denies: chest pain, palpitations, orthopnea, paroxysmal noc. dyspnea, edema, light headedness, other Gastrointestinal: denies: nausea, vomiting, abdominal pain, diarrhea, constipation, melena, hematochezia, other Genitourinary: denies: dysuria, frequency, incontinence, hematuria, retention, other - Medication Medications: Active Medications Generic Name Dose Route Start Last Admin Trade Name Freq PRN Reason Stop Dose Admin Acetaminophen 650 mg 11/13/20 15:34 11/14/20 04:41 Acetaminophen 325 Mg Tab PO 650 mg Q4H PRN Administration Headache/Fever/Mild Pain (1-3) Hydrocodone Bitart/Acetaminophen 1 tab 11/13/20 21:00 11/14/20 08:09 Hydrocodone/Acetaminophen 5/325 Mg Tablet PO 1 tab BID SETH Administration Amlodipine Besylate 5 mg 11/14/20 09:00 11/14/20 08:09 Amlodipine 5 Mg Tab PO 5 mg DAILY SETH Administration Aspirin 81 mg 11/14/20 09:00 11/14/20 08:09 Aspirin 81 Mg Enteric Coated Tablet PO 81 mg DAILY SETH Administration Atorvastatin Calcium 40 mg 11/13/20 21:00 11/13/20 20:43 Atorvastatin Calcium 40 Mg Tab PO 40 mg HS SETH Administration Clopidogrel Bisulfate 75 mg 11/14/20 09:00 11/14/20 08:09 Clopidogrel Bisulfate 75 Mg Tab PO 75 mg DAILY SETH Administration Heparin Sodium (Porcine) 0 units 11/13/20 15:45 11/14/20 11:25 Heparin 10,000 Units/ 10 Ml Vial SLOW IVP 2,010 unit ASDIR SETH Administration Protocol Ceftriaxone Sodium 1 gm/ 100 mls @ 200 mls/hr 11/13/20 18:00 11/13/20 17:47 Sodium Chloride IVPB 100 mls Q24HR SETH Administration Metoprolol Succinate 100 mg 11/13/20 21:00 11/14/20 08:09 Metoprolol Succinate Xl 100 Mg Tab PO 100 mg BID SETH Administration Ondansetron HCl 4 mg 11/13/20 15:34 11/14/20 06:07 Ondansetron Odt 4 Mg Tab PO 4 mg Q6H PRN Administration Nausea/Vomiting - Exam Neck: negative: supple, symmetric, no JVD, no thyromegaly, no lymphadenopathy, no carotid bruit, JVD Heart: negative: RRR, no murmur, no gallops, no rubs, normal peripheral pulses, irregular, diminshed peripheral pulses, murmur present, II/IV, III/IV Respiratory: negative: CTAB, no wheezes, no rales, no ronchi, normal chest expansion, no tachypnea, normal percussion, rales, rhonchi, tachypneic, wheezes Gastrointestinal: negative: soft, non-tender, non-distended, normal bowel sounds, no palpable masses, no hepatomegaly, no splenomegaly, no bruit, no guarding, no rigidity, tender to palpation, distended, diminished bowl sounds, voluntary guarding Hosp A/P (1) Chronic kidney disease (CKD) stage G3a/A2, moderately decreased glomerular filtration rate (GFR) between 45-59 mL/min/1.73 square meter and albuminuria creatinine ratio between 30-299 mg/g Code(s): N18.31 - CHRONIC KIDNEY DISEASE, STAGE 3A Status: Acute (2) NSTEMI (non-ST elevated myocardial infarction) Code(s): I21.4 - NON-ST ELEVATION (NSTEMI) MYOCARDIAL INFARCTION Status: Acute (3) HTN (hypertension) Code(s): I10 - ESSENTIAL (PRIMARY) HYPERTENSION Status: Chronic - Plan Spoke with patient and patient's he does want to be resuscitated. Per patient's his paperwork states DO NOT RESUSCITATE however currently patient states that he wants to be resuscitated. We will continue patient on heparin drip cardiology consulted. Patient is on aspirin and statin. Patient on antibiotics unclear if he really needs this however we will continue for now. Patient did have bands. Will check UA.
[2020-11-14] MEDS: cefTRIAXone\\ROCEPHIN 1 GM in Sodium Chloride 0.9% 100 ML IVPB SCH (17:11)
[2020-11-14] MEDS: Sodium Chloride 0.45% 1,000 ML IV SCH (18:15)
[2020-11-14 18:38] LABS: Bacteria/HPF None Seen HPF (None Seen); Bilirubin Negative (Negative); Blood, Urine Trace (Negative); Clarity Clear (Clear); Glucose, Urine (Dipstick) Normal (Negative); Ketone, Urine Negative (Negative); Leukocyte Negative Leu/uL (Negative); Nitrite Negative (Negative); Protein, Urine (Dipstick) 100 mg/dL (Neg-Trace); RBC/HPF 0-3 HPF (0-3); Specific Gravity, Urine 1.014 (1.002-1.036); Squamous Epithelial 0-3 HPF (0-3); Urobilinogen Normal mg/dL (Less than 2); pH, Urine 5.5 (5.0-9.0)
[2020-11-14 18:42] LABS: Urine Culture Reflex Yes Yes
[2020-11-14] MEDS: Atorvastatin Calcium 40 MG TAB PO SCH (20:42)
[2020-11-14] MEDS ORDERED: ALPRAZolam 1 MG TAB PO SCH (21:00)
[2020-11-15] MEDS ORDERED: Heparin 25,000 units/D5W 500 ML IV SCH (03:15)
[2020-11-15 05:12] LABS: Anion Gap 13 mmol/L (10-20); BUN (Urea Nitrogen) 24 mg/dL (8.4-25.7); Calc. Creatinine Clearance 23 mL/min (70-130); Calcium 7.7 mg/dL (7.8-10.44); Carbon Dioxide 24 mmol/L (23-31); Chloride 102 mmol/L (98-107); Glucose 91 mg/dL (83-110); Potassium 3.8 mmol/L (3.5-5.1); Sodium 135 mmol/L (136-145)
[2020-11-15] MEDS: Clopidogrel Bisulfate 75 MG TAB PO SCH (05:25)
[2020-11-15] MEDS: Heparin 10,000 UNITS/ 10 ML VIAL SLOW IVP SCH (05:25)
[2020-11-15] MEDS: Amlodipine 5 MG TAB PO SCH (05:25)
[2020-11-15] MEDS: Aspirin 81 mg Enteric Coated Tablet PO SCH (05:25)
[2020-11-15] MEDS: Sodium Chloride 0.45% 1,000 ML IV SCH (07:05)
[2020-11-15] MEDS: HYDROcodone/Acetaminophen 5/325 mg Tablet PO SCH (08:11)
[2020-11-15] MEDS ORDERED: Isosorbide Dinitrate 5 MG TAB PO SCH (09:00)
[2020-11-15 09:41] LABS: Troponin I 4.641 ng/mL (< 0.028)
[2020-11-15] MEDS ORDERED: Fioricet 325/50/40 mg Tablet PO PRN (11:04)
--- NOTE | 2020-11-15 11:18 | PDOC.FMACP ---
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 The diagnosis, prognosis and goals of care were discussed. Appropriate forms and documentation to accomplish the goals of care were discussed. All questions were answered. Family has elected to make one daughter as surrogate decision maker and Mr Robles lacks capacity for full decision making. Transition to DNAR. Please also refer to Palliative Care notes in note section. Time Spent (mins): 20
--- NOTE | 2020-11-15 11:18 | PDOC.PALCO ---
Palliative Care Consult - Allergies Allergies/Adverse Reactions: Allergies Allergy/AdvReac Type Severity Reaction Status Date / Time No Known Drug Allergies Allergy Verified 08/30/15 19:37 - Objective Vital Signs: Vital Signs - Most Recent Temp Pulse Resp BP Pulse Ox 98.1 F 74 18 162/78 H 93 L 11/15/20 08:02 11/15/20 08:02 11/15/20 08:02 11/15/20 08:02 11/15/20 08:02 - Plan/Recommendations Plan: [] minutes spent on this encounter with >50% of the time in counseling and coordination of care. Thank you for this very appropriate consult.
--- NOTE | 2020-11-15 12:18 | CT ---
CT BRAIN NONCONTRAST: DATE: 11/15/2020 HISTORY: 89-year-old male with headache FINDINGS: There is no evidence of acute intra-axial or extra-axial hemorrhage. There is no midline shift or any other mass effect. There is no extra-axial fluid collection. There is no evidence of obstructive hydrocephalus. Calvarium is intact. There is diffuse brain parenchymal volume loss. There are low att enuation areas in the white matter. These are nonspecific, but in a patient of this age, they are probably chronic ischemic white matter changes due to microvascular atherosclerosis. IMPRESSION: 1) No acute intracranial findings. 2) involutional changes and chronic ischemic white matter changes.
--- NOTE | 2020-11-15 14:38 | PDOC.HOSPP ---
- Subjective Encounter Date: 11/15/20 Encounter Time: 10:30 Subjective: Patient complained of headache yesterday. - Objective Vital Signs & Weight: Vital Signs (12 hours) Temp Pulse Pulse Pulse Resp BP BP 11/15/20 11:44 76 74 140/73 126/73 11/15/20 11:34 98.4 F 73 20 11/15/20 08:02 98.1 F 74 18 11/15/20 05:25 64 11/15/20 03:53 96.9 F L 64 16 BP Pulse Ox 11/15/20 11:44 11/15/20 11:34 126/70 93 L 11/15/20 08:02 162/78 H 93 L 11/15/20 05:25 11/15/20 03:53 128/68 94 L Weight Weight 163 lb 1.6 oz I&O: 11/14/20 11/15/20 11/16/20 06:59 06:59 06:59 Intake Total 400.8 827 Output Total 225 Balance 175.8 827 Result Diagrams: 11/14/20 03:05 11/15/20 04:09 Hospitalist ROS - Review of Systems Cardiovascular: denies: chest pain, palpitations, orthopnea, paroxysmal noc. dyspnea, edema, light headedness, other Gastrointestinal: denies: nausea, vomiting, abdominal pain, diarrhea, constipation, melena, hematochezia, other Genitourinary: denies: dysuria, frequency, incontinence, hematuria, retention, other - Medication Medications: Active Medications Generic Name Dose Route Start Last Admin Trade Name Freq PRN Reason Stop Dose Admin Acetaminophen 650 mg 11/13/20 15:34 11/14/20 18:35 Acetaminophen 325 Mg Tab PO 650 mg Q4H PRN Administration Headache/Fever/Mild Pain (1-3) Hydrocodone Bitart/Acetaminophen 1 tab 11/13/20 21:00 11/15/20 08:11 Hydrocodone/Acetaminophen 5/325 Mg Tablet PO 1 tab BID SETH Administration Alprazolam 1 mg 11/14/20 21:00 11/14/20 20:42 Alprazolam 1 Mg Tab PO 1 mg HS SETH Administration Amlodipine Besylate 5 mg 11/14/20 09:00 11/15/20 05:25 Amlodipine 5 Mg Tab PO 5 mg DAILY SETH Administration Aspirin 81 mg 11/14/20 09:00 11/15/20 05:25 Aspirin 81 Mg Enteric Coated Tablet PO 81 mg DAILY SETH Administration Atorvastatin Calcium 40 mg 11/13/20 21:00 11/14/20 20:42 Atorvastatin Calcium 40 Mg Tab PO 40 mg HS SETH Administration Clopidogrel Bisulfate 75 mg 11/14/20 09:00 11/15/20 05:25 Clopidogrel Bisulfate 75 Mg Tab PO 75 mg DAILY SETH Administration Heparin Sodium (Porcine) 0 units 11/13/20 15:45 11/15/20 05:25 Heparin 10,000 Units/ 10 Ml Vial SLOW IVP 2,010 unit ASDIR SETH Administration Protocol Ceftriaxone Sodium 1 gm/ 100 mls @ 200 mls/hr 11/13/20 18:00 11/14/20 17:11 Sodium Chloride IVPB 100 mls Q24HR SETH Administration Sodium Chloride 1,000 mls @ 75 mls/hr 11/14/20 17:30 11/15/20 07:05 1/2 Normal Saline IV 1,000 mls .[id number] SETH Administration Heparin Sodium/Dextrose 500 mls @ 0 mls/hr 11/15/20 03:15 11/15/20 03:08 Heparin 25,000 Units/D5w IV 500 mls INF SETH Administration Protocol As Directed Isosorbide Dinitrate 5 mg 11/15/20 09:00 11/15/20 11:04 Isosorbide Dinitrate 5 Mg Tab PO 5 mg BID SEHT Administration Metoprolol Succinate 100 mg 11/13/20 21:00 11/15/20 05:25 Metoprolol Succinate Xl 100 Mg Tab PO 100 mg BID SETH Administration Ondansetron HCl 4 mg 11/13/20 15:34 11/14/20 06:07 Ondansetron Odt 4 Mg Tab PO 4 mg Q6H PRN Administration Nausea/Vomiting - Exam Heart: negative: RRR, no murmur, no gallops, no rubs, normal peripheral pulses, irregular, diminshed peripheral pulses, murmur present, II/IV, III/IV Respiratory: negative: CTAB, no wheezes, no rales, no ronchi, normal chest expansion, no tachypnea, normal percussion, rales, rhonchi, tachypneic, wheezes Gastrointestinal: negative: soft, non-tender, non-distended, normal bowel sounds, no palpable masses, no hepatomegaly, no splenomegaly, no bruit, no guarding, no rigidity, tender to palpation, distended, diminished bowl sounds, voluntary guarding Extremities: 1+ LE edema Hosp A/P (1) Chronic kidney disease (CKD) stage G3a/A2, moderately decreased glomerular filtration rate (GFR) between 45-59 mL/min/1.73 square meter and albuminuria creatinine ratio between 30-299 mg/g Code(s): N18.31 - CHRONIC KIDNEY DISEASE, STAGE 3A Status: Acute (2) NSTEMI (non-ST elevated myocardial infarction) Code(s): I21.4 - NON-ST ELEVATION (NSTEMI) MYOCARDIAL INFARCTION Status: Acute (3) HTN (hypertension) Code(s): I10 - ESSENTIAL (PRIMARY) HYPERTENSION Status: Chronic - Plan Spoke with patient and patient's he does want to be resuscitated. Per patient's his paperwork states DO NOT RESUSCITATE however currently patient states that he wants to be resuscitated. We will continue patient on heparin drip cardiology consulted. Patient is on aspirin and statin. Patient on antibiotics unclear if he really needs this however we will continue for now. Patient did have bands. Will check UA. 11/15 CT brain negative for any acute abnormalities. Mildly elevated ESR. His troponins did trend downwards. Creatinine has not improved on IV fluids. We will try Fioricet to see if that helps with patient's headaches. Will discontinue antibiotics urine normal. Patient has no cough or fever.
[2020-11-15 15:21] LABS: Hemoglobin 11.6 g/dL (14.0-18.0); Platelet Count 197 thou/uL (130-400)
[2020-11-15 15:43] VITALS: BP 127/64; TEMP 98.2
--- NOTE | 2020-11-15 15:55 | PDOC.DS.DS ---
Provider - Provider Date of Admission: 11/13/20 16:35 Date of Discharge: 11/15/20 Admitting Provider: Calvin Gramajo MD Consultations: Cardiology Primary Care Physician: Zac Driver MD Course - Hospital Course Hospital Course: Patient is a very pleasant 89-year-old man who initially presented to the hospital with complaints of chest pain. Patient has been in the hospital multiple times for the similar complaints. Patient has significant elevated troponins. Patient was initially put on heparin. Was initially supposed to undergo cardiac authorization however he has chronic kidney disease. The decision was made to not undergo cardiac authorization. His troponins improved. Patient was completely asymptomatic at this time. He did complain of a headache on and off. CT head was negative. Mildly elevated ESR however he is got no pain upon palpation around his temporal areas. Patient at this time was discharged home by cardiology. Started on a nitrite and will follow up with outpatient. Resuscitation Status: 11/15/20 13:05 Resuscitation Status Routine Resuscitation Status: DNAR: NO Resuscitation Discussed with: Pt. Daughter Luis F Etienne and Danii Valenzuela Additional comments: notified - Labs Lab Results: 11/15/20 14:57 11/15/20 04:09 Abnormal Lab Results - Last 48 hrs 11/13/20 16:08: Hgb 11.5 L, Hct 32.8 L 11/13/20 16:12: Troponin I 5.780 H* 11/13/20 20:17: APTT 117.9 H* 11/13/20 21:53: CK-MB (CK-2) 33.2 H*, Troponin I 13.548 H* 11/14/20 03:05: Carbon Dioxide 22 L, BUN 28 H, Creatinine 2.27 H, Albumin 3.2 L, Globulin 4.3 H, Albumin/Globulin Ratio 0.7 L 11/14/20 03:05: WBC 4.4 L, RBC 3.61 L, Hgb 11.6 L, Hct 33.6 L, MCH 32.2 H, MPV 6.3 L, Monocytes % (Manual) 12 H 11/14/20 03:05: APTT 66.8 H 11/14/20 10:43: APTT 60.0 H 11/14/20 17:09: APTT 76.6 H 11/14/20 18:22: Urine Protein 100 A, Urine Blood Trace A, Urine WBC 4-6 A, Urine Culture Reflexed Yes A 11/14/20 23:11: APTT 68.5 H 11/15/20 04:09: Sodium 135 L, Creatinine 2.28 H, Calcium 7.7 L 11/15/20 04:09: APTT 65.6 H 11/15/20 08:56: Troponin I 4.641 H* 11/15/20 11:43: APTT 81.2 H 11/15/20 11:43: ESR Westergren 63 H 11/15/20 14:57: Hgb 11.6 L, Hct 33.8 L Microbiology - Entire Visit 11/14/20 18:47 Urine clean catch Urine Culture - Preliminary NO GROWTH AT 24 HOURS - Physical Exam Vitals: Vital Signs (12 hours) Temp Pulse Pulse Pulse Resp BP BP 11/15/20 15:24 98.2 F 69 15 11/15/20 11:44 76 74 140/73 126/73 11/15/20 11:34 98.4 F 73 20 11/15/20 08:02 98.1 F 74 18 11/15/20 05:25 64 BP Pulse Ox 11/15/20 15:24 127/64 93 L 11/15/20 11:44 11/15/20 11:34 126/70 93 L 11/15/20 08:02 162/78 H 93 L 11/15/20 05:25 Weight Weight 163 lb 1.6 oz Physical Exam: The patient was seen and examined on the day of discharge. Problem - Problem (1) Chronic kidney disease (CKD) stage G3a/A2, moderately decreased glomerular filtration rate (GFR) between 45-59 mL/min/1.73 square meter and albuminuria creatinine ratio between 30-299 mg/g Code(s): N18.31 - CHRONIC KIDNEY DISEASE, STAGE 3A Status: Acute (2) NSTEMI (non-ST elevated myocardial infarction) Code(s): I21.4 - NON-ST ELEVATION (NSTEMI) MYOCARDIAL INFARCTION Status: Acute (3) HTN (hypertension) Code(s): I10 - ESSENTIAL (PRIMARY) HYPERTENSION Status: Chronic Plan - Discharge Medications Prescriptions: Aspirin [Ecotrin Low Strength] 81 mg PO DAILY #30 tab Isosorbide Dinitrate [Isordil] 5 mg PO BID #60 tab Home Medications: Medication Instructions Recorded Confirmed Type HYDROcodone Bit/APAP 5/325 [[place]] 1 tab PO BID 08/30/15 11/13/20 History Amlodipine [Norvasc] 5 mg PO DAILY #0 tab 08/31/15 11/13/20 Rx Atorvastatin Calcium [Lipitor] 40 mg PO HS #30 tab 10/13/20 11/13/20 Rx Clopidogrel Bisulfate [Plavix] 75 mg PO DAILY #30 tab 10/13/20 11/13/20 Rx Metoprolol Succinate [Toprol XL] 200 mg PO DAILY #60 tab 10/13/20 11/13/20 Rx ALPRAZolam [Xanax] 1 mg PO HS 11/13/20 11/13/20 History Acetaminophen [Tylenol Regular 325 mg PO Q12H PRN 11/13/20 11/13/20 History Strength] Aspirin [Ecotrin Low Strength] 81 mg PO DAILY #30 tab 11/15/20 Rx Isosorbide Dinitrate [Isordil] 5 mg PO BID #60 tab 11/15/20 Rx Allergies: No Known Drug Allergies Allergy (Verified 08/30/15 19:37) PER ORDER - Discharge Instructions Discharge Instructions:: Please do not take any [id number] aspirin, Advil, Excedrin. I have stopped your probenecid. Follow-up with cardiology. Activity:: Activity as Tolerated Nourishment:: Heart Healthy Diet - Follow up Plan Referrals: Zac Driver MD [Primary Care Provider] - 11/22/20 2:30 pm Keith Mclaughlin MD [Active] - Disposition: HOME Quality - Care Measures CORE MEASURES:: N/A
[2020-11-15] MEDS ORDERED: Carvedilol 3.125 MG TAB PO SCH (17:00)
--- NOTE | 2020-11-18 07:22 | PQF ---
CLINICAL DOCUMENTATION CLARIFICATION FORM: Dear : Alivia Miranda Date / Time: 11/18/20 07:21 Please exercise your independent, professional judgment in responding to the clarification form. Clinical indicators are provided on the bottom of this form for your review Please check appropriate box(es): [ ] Acute Renal Failure (ARF) / Acute Kidney Injury (SUSANNE) [ ] No SUSANNE [ x ] Other diagnosis, please specify: ___ckd 3a [ ] Unable to determine Physician Signature: Date/Time: For continuity of documentation, please document condition throughout progress notes and discharge summary. Thank You. To be completed by CDI/Coding staff for physician review: Present Clinical Indicators - Signs / Symptoms / Labs Results and Location in Medical Record [x] Acute kidney injury ED Notes 11/13 [x] reports joint swelling ED Notes 11/13 [x] reports myalgia ED Notes 11/13 [x] BUN: 11/13=30 11/14=28 Laboratory 11/13 [x] Creatinine: 11/13=2.39 11/14=2.27 11/15=2.28 Laboratory 11/13 [x] GFR: 11/13=26 11/14=27 Laboratory 11/13 Present Risk Factors Results and Location in Medical Record [x] 89 years old male DS 11/15 [x] CKD DS 11/15 [x] HTN DS 11/15 [x] Present Treatments Results and Location in Medical Record [x] IVF MAR 11/14 [x] Laboratory Monitoring Laboratory 11/14 CDS/Deputy Jailer Signature:Imtiaz Chandra Phone #: ext [phone] Date/Time: 11/18/20 This is a permanent part of the Medical Record [facility]
--- NOTE | 2020-11-19 14:54 | EKG ---
Test Reason : CP Blood Pressure : / mmHG Vent. Rate : 086 BPM Atrial Rate : 086 BPM P-R Int : 182 ms QRS Dur : 130 ms QT Int : 382 ms P-R-T Axes : 012 -67 116 degrees QTc Int : 457 ms Normal sinus rhythm Left axis deviation Non-specific intra-ventricular conduction block T wave abnormality, consider lateral ischemia Abnormal ECG T wave inversion I, aVL Confirmed by LUCINA Suarez, LIDIA ([id number]), editor news ANDREWS ANTOINE ([id number]) on 11/19/2020 2:54:11 PM Referred By: LUCINA Confirmed By:LIDIA VERDUGO M.D.
== END 2020-11-15 17:10 | disposition home or self-care (01) | DRG 282 ==
LOC: ERS 12:54 → 2NO 16:35
PROVIDERS: ADMIT Internal Medicine; ATTEND Internal Medicine
DX: I21.4 Non-ST elevation (NSTEMI) myocardial infarction (principal); I12.9 Hypertensive chronic kidney disease with stage 1 through stage 4 chronic kidney disease, or unspecified chronic kidney disease; Z96.652 Presence of left artificial knee joint; Z66 Do not resuscitate; N18.31 Chronic kidney disease, stage 3a; I25.10 Atherosclerotic heart disease of native coronary artery without angina pectoris; F03.90 Unspecified dementia, unspecified severity, without behavioral disturbance, psychotic disturbance, mood disturbance, and anxiety; E78.5 Hyperlipidemia, unspecified; Z86.73 Personal history of transient ischemic attack (TIA), and cerebral infarction without residual deficits; Z79.01 Long term (current) use of anticoagulants; Z79.899 Other long term (current) drug therapy; I25.2 Old myocardial infarction; Z98.61 Coronary angioplasty status
CPT/HCPCS: 36415; 36416; 70450; 71045; 80048; 80053; 81001; 82553; 83880; 84484; 85007; 85014; 85018; 85025; 85027; 85049; 85610; 85652; 85730; 87086; 93005; 93010; 96365; 96375; J0696; J1644; J3490; Q0162

== ENCOUNTER 2020-11-18 19:10 | Inpatient (IN) | payer MEDICARE ==
[2020-11-18] MEDS ORDERED: Fentanyl 100 MCG/2 ML VIAL ONE (19:43)
[2020-11-18 19:47] LABS: #Lymphocytes 1.3 thou/uL (1.20-3.40); #Neutrophils 4.9 thou/uL (1.40-6.50); %Basophils 0.2 % (0.0-1.0); %Eosinophils 0.1 % (0.0-10.0); %Lymphocytes 18.3 % (21.0-51.0); %Monocytes 13.5 % (0.0-10.0); %Neutrophils 67.9 % (42.0-75.0); Hemoglobin 12.2 g/dL (14.0-18.0); Mean Corpuscular HGB CONC 34.8 g/dL (32.0-36.0); Mean Corpuscular Hemoglobin 32.6 pg (27.0-31.0); Mean Corpuscular Volume 93.8 fL (78.0-98.0); Mean Platelet Volume 6.5 fL (7.4-10.4); Platelet Count 287 thou/uL (130-400); RBC Distribution Width 12.5 % (11.5-14.5); Red Blood Cell (RBC) Count 3.75 mill/uL (4.70-6.10); White Blood Cell (WBC) Count 7.2 thou/uL (4.8-10.8)
[2020-11-18] MEDS ORDERED: PROVENTIL INHALER 6.7 G (200 INHALATIONS) ONE (19:49)
[2020-11-18] MEDS ORDERED: Albuterol 200 PUFF (6.7GM INHALER) ONE (19:52)
[2020-11-18 19:53] LABS: INR-International Normal Ratio 0.9; PTT 36.7 sec (22.9-36.1); Prothrombin Time 12.7 sec (12.0-14.7)
[2020-11-18 20:08] LABS: ALT (SGPT) 48 U/L (8-55); AST (SGOT) 52 U/L (5-34); Albumin 3.6 g/dL (3.4-4.8); Alkaline Phosphatase 117 U/L (40-110); Anion Gap 19 mmol/L (10-20); BUN (Urea Nitrogen) 36 mg/dL (8.4-25.7); Bilirubin, Total 0.4 mg/dL (0.2-1.2); CK (CPK) 150 U/L (30-200); Calc. Creatinine Clearance 0 mL/min (70-130); Calcium 8.2 mg/dL (7.8-10.44); Carbon Dioxide 21 mmol/L (23-31); Chloride 104 mmol/L (98-107); Globulin 5.2 g/dL (2.4-3.5); Glucose 151 mg/dL (83-110); Potassium 4.4 mmol/L (3.5-5.1); Protein, Total 8.8 g/dL (5.8-8.1); Sodium 140 mmol/L (136-145)
[2020-11-18] MEDS ORDERED: Enoxaparin Sodium 40 MG/0.4 ML SYRINGE ONE (20:11)
[2020-11-18] MEDS ORDERED: Dexamethasone 4 mg/ml Vial ONE (20:11)
[2020-11-18] MEDS ORDERED: Enoxaparin Sodium 30 MG/0.3 ML SYRINGE ONE (20:11)
[2020-11-18] MEDS ORDERED: Aspirin Chewable 81 MG TAB ONE (20:11)
--- NOTE | 2020-11-18 20:36 | RAD ---
PORTABLE CHEST ONE VIEW: 11/18/20 at 7:49 p.m. HISTORY: Dyspnea. COMPARISON: 11/13/20. FINDINGS: The heart size is normal. The aorta is tortuous. There has been interval worsening of patchy bilatera l alveolar opacities. No pneumothoraces or large effusions are seen. There are degenerative changes i n the spine. IMPRESSION: Findings suspicious for pneumonia. POS: OFF
[2020-11-18] MEDS ORDERED: Nitroglycerin 0.4 MG TAB 1 EACH ONE (20:49)
[2020-11-18 21:08] LABS: CKMB 2.9 ng/mL (0-6.6)
[2020-11-18 21:23] LABS: SARS-CoV-2 NAA Rapid Test Not Detected (NotDetected)
[2020-11-18 21:31] LABS: Bacteria/HPF None Seen HPF (None Seen); Bilirubin Negative (Negative); Blood, Urine Trace (Negative); Clarity Clear (Clear); Glucose, Urine (Dipstick) Normal (Negative); Ketone, Urine Negative (Negative); Leukocyte Negative Leu/uL (Negative); Nitrite Negative (Negative); Protein, Urine (Dipstick) 200 mg/dL (Neg-Trace); RBC/HPF 0-3 HPF (0-3); Specific Gravity, Urine 1.022 (1.002-1.036); Squamous Epithelial 0-3 HPF (0-3); Urobilinogen Normal mg/dL (Less than 2); WBC/HPF 0-3 HPF (0-3); pH, Urine 5.5 (5.0-9.0)
[2020-11-18] MEDS ORDERED: Cefepime 2 GM VIAL ONE (21:50)
[2020-11-18] MEDS ORDERED: Ondansetron PF 4 MG/2 ML Vial IVP PRN (22:08)
[2020-11-18] MEDS ORDERED: Labetalol HCl 100 MG/20 ML VIAL SLOW IVP PRN (22:08)
[2020-11-18] MEDS ORDERED: Promethazine HCl 12.5 MG in Sodium Chloride 0.9% 50 ML IVPB PRN (22:08)
[2020-11-18] MEDS ORDERED: Guaifenesin DM 100-10/5 ML UDCUP PO PRN (22:08)
[2020-11-18] MEDS ORDERED: cloNIDine 0.1 MG TAB PO PRN (22:08)
[2020-11-18] MEDS ORDERED: hydrALAZINE 20 MG/ML VIAL SLOW IVP PRN (22:08)
[2020-11-18] MEDS ORDERED: Acetaminophen 325 MG TAB PO PRN (22:08)
--- NOTE | 2020-11-18 22:10 | PDOC.HHP ---
Hospitalist HPI - History of Present Illness Shortness of breath History of Present Illness: 89-year-old male patient presents to the ER with complaint of difficulty breathing, posterior neck pain, left-sided jaw pain that began 4 days ago and worsened today. Patient's is sick at home with pneumonia per patient. The patient was tested for COVID-19 yesterday and tested negative. The patient denies any chest pain, nausea, vomiting, diarrhea, fever, chills, or other symptoms at this time. Patient also reports generalized body aches. Per EMS the patient's SPO2 was 88% on room air. They placed him on a nonrebreather which brought his SPO2 up to 90%. Here, he required high flow nasal cannula He was negative for covid and flu as well. CXR suspicious for pneumonia. troponin 5.5, decreased to 4.6 on recheck, patient was recently admitted for high troponins but decision was made to not pursue cath due to CKD. Cr 2.2 today. Hospitalist ROS - Review of Systems Constitutional: reports: weakness. denies: fever, chills, sweats, malaise, other Eyes: denies: pain, vision change, conjunctivae inflammation, eyelid inflammation, redness, other ENT: denies: ear pain, ear discharge, nose pain, nose discharge, nose congestion, mouth pain, mouth swelling, throat pain, throat swelling, other Respiratory: reports: shortness of breath, SOB with excertion. denies: cough, dry, hemoptysis, pleuritic pain, sputum, wheezing, other Cardiovascular: denies: chest pain, palpitations, orthopnea, paroxysmal noc. dyspnea, edema, light headedness, other Gastrointestinal: denies: nausea, vomiting, abdominal pain, diarrhea, constipation, melena, hematochezia, other Genitourinary: denies: dysuria, frequency, incontinence, hematuria, retention, other Musculoskeletal: denies: neck pain, shoulder pain, arm pain, back pain, hand pain, leg pain, foot pain, other Skin: denies: rash, lesions, sue, bruising, other Neurological: denies: weakness, numbness, incoordination, change in speech, confusion, seizures, other All other systems reviewed; all pertinent +/- noted in HPI/Subj - Medication Medications: amLODIPine TABLET : Strength - 10 mg : ORAL Patient Dose: 10 mg Oral once a day. metoprolol tartrate oral tablet : Strength - 25 mg : ORAL Patient Dose: Unknown. HYDROcodone Compound oral syrup syrup : ORAL Patient Dose: Unknown. atorvastatin tablet : Strength - 20 mg : ORAL Patient Dose: once a day. celecoxib capsule : Strength - 100 mg : ORAL Patient Dose: once a day. Hospitalist History - Past Medical History Other Medical History: HTN, CVA, NH - Past Surgical History Other Surgical History: Surgical history of tonsillectomy, Surgical history of orthopedic surgery, L KNEE, CATARACTS, Surgical history of spinal surgery, lumbar. - Family History Family History: reports: no pertinent history - Social History Smoking Status: Never smoker Alcohol: reports: None Drugs: reports: none - Exam General Appearance: NAD, awake alert Eye: PERRL, anicteric sclera ENT: normocephalic atraumatic, no oropharyngeal lesions, moist mucosa Neck: supple, symmetric, no JVD, no thyromegaly, no lymphadenopathy, no carotid bruit Heart: RRR, no murmur, no gallops, no rubs, normal peripheral pulses Respiratory: CTAB, no wheezes, no rales, no ronchi, normal chest expansion, no tachypnea, normal percussion Gastrointestinal: soft, non-tender, non-distended, normal bowel sounds, no palpable masses, no hepatomegaly, no splenomegaly, no bruit Extremities: no cyanosis, no clubbing, no edema Skin: normal turgor, no lesions, no rashes Neurological: cranial nerve grossly intact, normal sensation to touch, no weakness, no focal deficits, no new deficit Musculoskeletal: normal tone, normal strength, no muscle wasting Psychiatric: normal affect, normal behavior, A&O x 3 Hospitalist Results - Labs Result Diagrams: 11/18/20 19:37 11/18/20 19:37 Lab results: WBC 7.2 thou/uL (4.8-10.8) 11/18/20 19:37 Hgb 12.2 g/dL (14.0-18.0) L 11/18/20 19:37 Hct 35.1 % (42.0-52.0) L 11/18/20 19:37 MCV 93.8 fL (78.0-98.0) 11/18/20 19:37 Plt Count 287 thou/uL (130-400) 11/18/20 19:37 Neutrophils % 67.9 % (42.0-75.0) 11/18/20 19:37 Sodium 140 mmol/L (136-145) 11/18/20 19:37 Potassium 4.4 mmol/L (3.5-5.1) 11/18/20 19:37 Chloride 104 mmol/L (98-107) 11/18/20 19:37 Carbon Dioxide 21 mmol/L (23-31) L 11/18/20 19:37 BUN 36 mg/dL (8.4-25.7) H 11/18/20 19:37 Creatinine 2.29 mg/dL (0.7-1.3) H 11/18/20 19:37 Glucose 151 mg/dL (83-110) H 11/18/20 19:37 Lactic Acid 3.3 mmol/L (0.5-2.2) H 11/18/20 19:37 Calcium 8.2 mg/dL (7.8-10.44) 11/18/20 19:37 Total Bilirubin 0.4 mg/dL (0.2-1.2) 11/18/20 19:37 AST 52 U/L (5-34) H 11/18/20 19:37 ALT 48 U/L (8-55) 11/18/20 19:37 Alkaline Phosphatase 117 U/L (40-110) H 11/18/20 19:37 Creatine Kinase 150 U/L (30-200) 11/18/20 19:37 CK-MB (CK-2) 2.9 ng/mL (0-6.6) 11/18/20 19:37 Troponin I 5.558 ng/mL (< 0.028) H* 11/18/20 19:37 Serum Total Protein 8.8 g/dL (5.8-8.1) H 11/18/20 19:37 Albumin 3.6 g/dL (3.4-4.8) 11/18/20 19:37 Urine Ketones Negative mg/dL (Negative) 11/18/20 20:59 Urine Blood Trace (Negative) A 11/18/20 20:59 Urine Nitrite Negative (Negative) 11/18/20 20:59 Ur Leukocyte Esterase Negative Bryon/uL (Negative) 11/18/20 20:59 Urine RBC 0-3 HPF (0-3) 11/18/20 20:59 Urine WBC 0-3 HPF (0-3) 11/18/20 20:59 Ur Squamous Epith Cells 0-3 HPF (0-3) 11/18/20 20:59 Urine Bacteria None Seen HPF (None Seen) 11/18/20 20:59 Additional comment: VITAL SIGNS SatNov 18, 2020 19:19 TIGRE Obrien, [facility] BP: 146/93 Pulse: 93 Resp: 30 Temp: 98.3 (Axillary) Pain: 8 O2 sat: 83 on (Room Air) Time: 11/18/2020 19:19. XR Chest 1 View Portable Observe DT: SatNov 18, 2020 19:43 CXRP PORTABLE CHEST ONE VIEW: 11/18/20 at 7:49 p.m. HISTORY: Dyspnea. COMPARISON: 11/13/20. FINDINGS: The heart size is normal. The aorta is tortuous. There has been interval worsening of patchy bilatera l alveolar opacities. No pneumothoraces or large effusions are seen. There are degenerative changes i n the spine. IMPRESSION: Findings suspicious for pneumonia. POS: OFF . - EKG Interpretation EK LEAD EKG INTERPRETATION SatNov 18, 2020 19:21 MD Rasheed Paul 12 lead EKG interpreted by Emergency Department Physician at time of study 12 lead EKG shows sinus arrhythmia Rate (beats per minute): 92 with no ectopics Conduction with complete left bundle branch block ST depression Areas affected: lateral leads T waves inverted Leads affected: I Leads affected: aVl [place] left Clinical impression: myocardial injury. 12 LEAD EKG INTERPRETATION SatNov 18, 2020 20:54 MD Rasheed Paul 12 lead EKG interpreted by Emergency Department Physician at time of study 12 lead EKG shows sinus tachycardia Rate (beats per minute): 101 with no ectopics Conduction with complete left bundle branch block ST depression Areas affected: lateral leads T waves inverted Leads affected: I Leads affected: aVl [place] left Clinical impression: myocardial injury. independently EKG reviewed and agree with ED physician interpretation. Hospitalist H&P A/P - Plan Plan: 89-year-old male patient presents to the ER with complaint of difficulty breathing, posterior neck pain, left-sided jaw pain that began 4 days ago and worsened today. # pneumonia - COVID/flu negative, CXR concerning for COVID - admit to floor - azithromycin/ceftraixone - d/c dexamethasone and covid precations for negative test - PT/OT - consult pulmonary medicine # NSTEMI - patient recieved lovenox in ED, with SUSANNE will hold on further anticoag for now and consult cardiology - continue home meds including asa and plavix - consult cardiology - dvt ppx w/ heparin for now, no drip as already anticoagulated # SUSANNE/CKD - Cr within typical range from previous days, manage as above DVT/GI ppx full code
[2020-11-18] MEDS ORDERED: Electrolyte Replacement Protocol 1 EACH FS PRN (22:15)
[2020-11-18 22:35] LABS: Lactic Acid 1.8 mmol/L (0.5-2.2)
[2020-11-18] MEDS ORDERED: Vancomycin 1 GM/200 ML BAG ONE (23:19)
[2020-11-18 23:42] LABS: Troponin I 4.667 ng/mL (< 0.028)
[2020-11-18] MEDS ORDERED: Dexamethasone 4 mg/ml Vial SLOW IVP SCH (23:59)
[2020-11-19] MEDS ORDERED: Albuterol 200 PUFF (6.7GM INHALER) INH PRN (01:20)
[2020-11-19] MEDS ORDERED: Dextrose 50% Abboject 50 ML SYRINGE SLOW IVP PRN (01:29)
[2020-11-19] MEDS ORDERED: Dextrose 5% in Water 1,000 ML IV PRN (01:29)
[2020-11-19] MEDS ORDERED: HumaLOG 300 UNITS/3 ML VIAL SC PRN (01:29)
[2020-11-19 01:32] VITALS: BMI 22.7
[2020-11-19 01:56] LABS: #Lymphocytes 0.4 thou/uL (1.20-3.40); #Monocytes 0.2 thou/uL (0.11-0.59); #Neutrophils 5.4 thou/uL (1.40-6.50); %Eosinophils 0.1 % (0.0-10.0); %Lymphocytes 7.3 % (21.0-51.0); %Neutrophils 89.6 % (42.0-75.0); Hemoglobin 12.7 g/dL (14.0-18.0); Mean Corpuscular HGB CONC 35.9 g/dL (32.0-36.0); Mean Corpuscular Hemoglobin 33.7 pg (27.0-31.0); Mean Corpuscular Volume 93.6 fL (78.0-98.0); Platelet Count 229 thou/uL (130-400); RBC Distribution Width 12.6 % (11.5-14.5); Red Blood Cell (RBC) Count 3.77 mill/uL (4.70-6.10); White Blood Cell (WBC) Count 6.1 thou/uL (4.8-10.8)
[2020-11-19] MEDS ORDERED: ALPRAZolam 1 MG TAB PO SCH (02:15)
[2020-11-19 02:16] LABS: Troponin I 5.708 ng/mL (< 0.028)
[2020-11-19 02:50] LABS: Anion Gap 20 mmol/L (10-20); BUN (Urea Nitrogen) 40 mg/dL (8.4-25.7); Calc. Creatinine Clearance 23 mL/min (70-130); Calcium 7.6 mg/dL (7.8-10.44); Carbon Dioxide 17 mmol/L (23-31); Chloride 106 mmol/L (98-107); Glucose 232 mg/dL (83-110); Magnesium 1.9 mg/dL (1.6-2.6); Potassium 4.8 mmol/L (3.5-5.1); Sodium 138 mmol/L (136-145)
[2020-11-19] MEDS ORDERED: Magnesium 2 GM/50 ML 2 GM in Premix Bag 1 BAG IVPB SCH (06:45)
[2020-11-19] MEDS: Famotidine 20 MG TAB PO SCH (08:28)
[2020-11-19] MEDS: Aspirin 81 mg Enteric Coated Tablet PO SCH (08:28)
[2020-11-19] MEDS: Amlodipine 5 MG TAB PO SCH (08:28)
[2020-11-19] MEDS: Clopidogrel Bisulfate 75 MG TAB PO SCH (08:29)
[2020-11-19] MEDS: Polyethylene Glycol 3350 17 GM Packet PO SCH (08:29)
[2020-11-19] MEDS ORDERED: Heparin 5,000 UNITS/ML VIAL SC SCH (09:00)
[2020-11-19] MEDS ORDERED: Isosorbide Dinitrate 5 MG TAB PO SCH (09:00)
[2020-11-19] MEDS ORDERED: Enoxaparin Sodium 40 MG/0.4 ML SYRINGE SC SCH (10:00)
--- NOTE | 2020-11-19 10:24 | CON ---
DATE OF CONSULTATION: PRIMARY MARKET ANALYST: Dr. Jonathan Crockett. REASON FOR CONSULTATION: [id number] myocardial infarction. HISTORY OF PRESENT ILLNESS: Mr. Douglas Robles is a very pleasant 89-year-old gentleman, history of coronary artery disease and renal insufficiency. The patient recently was admitted with chest pain, released home, but started having posterior neck pain, came back to the emergency room. Chest x-ray was abnormal. There was some concern about this possibly being COVID, but the COVID tests were all negative. The patient states the pain starts in his posterior neck, but then goes into both arms, it is very uncomfortable. His troponin levels were high as will be outlined below. The patient was recently hospitalized a few days ago and then released home, was thought to be a suboptimal candidate for percutaneous intervention due to renal insufficiency. PAST MEDICAL HISTORY: 1. Coronary artery disease. 2. Previous balloon angioplasty. SOCIAL HISTORY: No alcohol or tobacco. FAMILY HISTORY: Noncontributory. ALLERGIES: NONE. MEDICATIONS: Please see nurse's notes. He is on, 1. Aspirin. 2. Plavix. 3. Toprol. REVIEW OF SYSTEMS: CONSTITUTIONAL: Positive for some weakness and fatigue. VISION: No changes. HEARING: No changes. PULMONARY: Not currently short of breath. CARDIAC: Anginal chest pain as outlined above. PHYSICAL EXAMINATION: GENERAL: This is a delightful elderly gentleman, resting comfortably. VITAL SIGNS: Blood pressure 133/84, pulse 77 and regular. LUNGS: There are some diffuse rales. CARDIAC: Normal S1. Normal S2. There is no new murmur, rub, or gallop. ABDOMEN: Soft, nontender. EXTREMITIES: No edema. Pedal pulses are palpable. PERTINENT LABORATORY DATA: Creatinine is 2.3, which is relatively stable. Troponin level of 5.7. Chest x-ray shows diffuse infiltrates. This may be congestive heart failure. EKG, sinus rhythm, left bundle-branch block. ASSESSMENT: 1. Recurrent [id number] myocardial infarction. 2. Diffuse infiltrates. These may will be congestive heart failure, although he is also being treated with antibiotics. He has been negative for COVID on several tests. PLAN: 1. We will give him Lovenox. 2. Aspirin and Plavix. 3. Continue to follow with you. Ultimately, decision will need to be made about catheterization. Presently, it had not been done due to concern with his renal failure. Job ID: [id number]
[2020-11-19] MEDS ORDERED: Nitroglycerin 2% Ointment 1 INCH/1 GM Packet TOP SCH (10:30)
--- NOTE | 2020-11-19 12:48 | CON ---
DATE OF CONSULTATION: 11/19/2020 REASON FOR CONSULTATION: Hypoxemia, pulmonary infiltrates. HISTORY OF PRESENT ILLNESS: The patient is an 89-year-old male who presented to the hospital last night with increasing shortness of breath, left jaw pain, and posterior jaw pain. The patient had pulmonary infiltrates with hypoxemia. He has been placed on high-flow oxygen. Apparently, his is at home with pneumonia. He tested negative for COVID on the rapid test last night but has not had the traditional test. PAST MEDICAL HISTORY: 1. Hypertension. 2. Stroke. 3. Myocardial infarction. SURGICAL HISTORY: Tonsillectomy, left knee surgery, cataract surgery, spinal surgery. SOCIAL HISTORY: Never smoker. Does not consume alcohol. 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 MEDICATIONS: Prior to admission, amlodipine, metoprolol, hydrocodone, atorvastatin, Celebrex. REVIEW OF SYSTEMS: Twelve-point review of systems is otherwise negative. ALLERGIES: NONE. PHYSICAL EXAMINATION: VITAL SIGNS: Temperature 97.3, pulse 77, blood pressure 122/81, O2 saturation 97%. GENERAL: He is awake and alert and in no distress. HEENT: Unremarkable. NECK: No adenopathy or JVD. LUNGS: He has a few inspiratory crackles in both bases. CARDIOVASCULAR: S1, S2. Regular. ABDOMEN: Soft and nontender. EXTREMITIES: No clubbing, cyanosis, or edema. LABS: Sodium 138, potassium 4.8, chloride 106, CO2 17, BUN 40, creatinine 2.3, glucose 232. His anion gap is 15. Troponin 5.7. Urinalysis shows protein proteinuria. INR 0.9, PTT 36.7. White blood cell count 6.1, hematocrit 35.3, and platelet count 229. His x-ray shows diffuse bilateral infiltrates in the perihilar distribution. ASSESSMENT: 1. Myocardial infarction. 2. Likely some component of congestive heart failure. 3. Rule out pneumonia. 4. Rule out COVID infection. PLAN: He is on empiric antibiotics. I will go ahead and recheck a COVID test. If that is negative, then I think he can come out of isolation. I will check a BNP level to see if this is just pulmonary edema. Job ID: [id number]
[2020-11-19] MEDS: Nitroglycerin 2% Ointment 1 INCH/1 GM Packet TOP SCH ×2 (14:34→20:58)
--- NOTE | 2020-11-19 15:03 | PDOC.HOSPP ---
- Subjective Encounter Date: 11/19/20 Subjective: The patient is complaining of upper chest discomfort - Objective Vital Signs & Weight: Vital Signs (12 hours) Temp Pulse Ox 11/19/20 13:58 96 11/19/20 08:00 95 11/19/20 04:00 97.3 F L Weight Admit Weight 158 lb 11.68 oz Weight 158 lb 11.68 oz Most Recent Monitor Data Heart Rate from ECG 85 NIBP 128/77 NIBP BP-Mean 94 Respiration from ECG 22 SpO2 94 I&O: 11/18/20 11/19/20 11/20/20 06:59 06:59 06:59 Intake Total 50 Output Total 125 Balance -75 Result Diagrams: 11/19/20 01:28 11/19/20 01:28 Additional Labs: Accuchecks 11/19/20 11/19/20 11:52 05:51 POC Glucose 148 H 166 H Hospitalist ROS - Medication Medications: Active Medications Generic Name Dose Route Start Last Admin Trade Name Freq PRN Reason Stop Dose Admin Amlodipine Besylate 5 mg 11/19/20 09:00 11/19/20 08:28 Amlodipine 5 Mg Tab PO 5 mg DAILY SETH Administration Aspirin 81 mg 11/19/20 09:00 11/19/20 08:28 Aspirin 81 Mg Enteric Coated Tablet PO 81 mg DAILY SETH Administration Clopidogrel Bisulfate 75 mg 11/19/20 09:00 11/19/20 08:29 Clopidogrel Bisulfate 75 Mg Tab PO 75 mg DAILY SETH Administration Famotidine 20 mg 11/19/20 09:00 11/19/20 08:28 Famotidine 20 Mg Tab PO 20 mg 0900 SETH Administration Metoprolol Succinate 200 mg 11/19/20 09:00 11/19/20 08:28 Metoprolol Succinate Xl 100 Mg Tab PO 200 mg DAILY SETH Administration Nitroglycerin 1 inch 11/19/20 14:00 11/19/20 14:34 Nitroglycerin 2% Ointment 1 Inch/1 Gm Packet TOP 1 inch Q8HR SETH Administration Polyethylene Glycol 17 gm 11/19/20 09:00 11/19/20 08:29 Polyethylene Glycol 3350 17 Gm Packet PO 17 gm DAILY SETH Administration - Exam General Appearance: awake alert Neck: supple, no JVD Heart: RRR Respiratory: normal chest expansion, no tachypnea, rhonchi Neurological: cranial nerve grossly intact, no weakness Hosp A/P (1) Acute kidney injury superimposed on chronic kidney disease Code(s): N17.9 - ACUTE KIDNEY FAILURE, UNSPECIFIED; N18.9 - CHRONIC KIDNEY DISEASE, UNSPECIFIED Status: Acute (2) NSTEMI (non-ST elevated myocardial infarction) Code(s): I21.4 - NON-ST ELEVATION (NSTEMI) MYOCARDIAL INFARCTION Status: Acute (3) Acute on chronic heart failure with preserved ejection fraction Code(s): I50.33 - ACUTE ON CHRONIC DIASTOLIC (CONGESTIVE) HEART FAILURE Status: Acute (4) Bilateral pulmonary infiltrates on chest x-ray Code(s): R91.8 - OTHER NONSPECIFIC ABNORMAL FINDING OF LUNG FIELD Status: Acute - Plan Non-STEMI and acute on chronic diastolic heart failure: The patient is on aspirin, Plavix, Lovenox, Toprol-XL and nitrate. Creatinine level is elevated above baseline. This could be related to cardi orenal syndrome. I will initiate diuresis with low-dose Bumex and monitor his response. COVID-19 PCR and influenza test are negative.
[2020-11-19 15:59] LABS: SARS-CoV-2 PCR by NAA Not Detected (NotDetected)
[2020-11-19] MEDS: ALPRAZolam 1 MG TAB PO SCH (20:57)
[2020-11-19] MEDS: cefTRIAXone\\ROCEPHIN 1 GM in Sodium Chloride 0.9% 100 ML IVPB SCH (20:57)
[2020-11-19] MEDS: Atorvastatin Calcium 40 MG TAB PO SCH (20:57)
[2020-11-19] MEDS: Bumetanide 1 MG/4 ML VIAL IVP SCH (20:59)
[2020-11-19] MEDS ORDERED: Azithromycin 500 MG in Syringe 0 ML IVPB SCH (21:00)
[2020-11-20] MEDS: Azithromycin 500 MG in Sodium Chloride 0.9% 250 ML 250 ML IVPB SCH ×2 (00:12→20:13)
[2020-11-20] MEDS: HYDROcodone/Acetaminophen 5/325 mg Tablet PO PRN (02:37)
[2020-11-20] MEDS: Nitroglycerin 2% Ointment 1 INCH/1 GM Packet TOP SCH ×3 (07:59→20:14)
[2020-11-20] MEDS: Morphine 2 MG/ML VIAL SLOW IVP PRN (08:05)
[2020-11-20] MEDS ORDERED: Nitroglycerin 0.4 MG TAB (25 Tab Bottle) SL PRN (08:50)
--- NOTE | 2020-11-20 08:53 | PDOC.HOSPP ---
- Subjective Encounter Date: 11/20/20 Subjective: The patient removed his high flow nasal cannula this morning. The nurse found him hypoxic and in respiratory distress. - Objective Vital Signs & Weight: Vital Signs (12 hours) Temp Pulse Resp BP Pulse Ox 11/20/20 07:55 98.4 F 105 H 42 H 127/83 90 L 11/20/20 07:25 93 L 11/20/20 00:53 98 11/19/20 23:42 98.5 F 81 14 124/72 97 Weight Admit Weight 158 lb 11.68 oz Weight 158 lb 11.68 oz Most Recent Monitor Data Heart Rate from ECG 89 NIBP 118/80 NIBP BP-Mean 92 Respiration from ECG 37 SpO2 87 I&O: 11/19/20 11/20/20 11/21/20 06:59 06:59 06:59 Intake Total 50 Output Total 125 275 Balance -75 -275 Result Diagrams: 11/19/20 01:28 11/19/20 01:28 Additional Labs: Accuchecks 11/19/20 11:52 POC Glucose 148 H Hospitalist ROS - Medication Medications: Active Medications Generic Name Dose Route Start Last Admin Trade Name Freq PRN Reason Stop Dose Admin Acetaminophen 650 mg 11/18/20 22:08 11/19/20 20:56 Acetaminophen 325 Mg Tab PO 650 mg Q4H PRN Administration Headache/Fever/Mild Pain (1-3) Hydrocodone Bitart/Acetaminophen 1 tab 11/18/20 22:08 11/20/20 02:37 Hydrocodone/Acetaminophen 5/325 Mg Tablet PO 1 tab Q4H PRN Administration Moderate Pain (4-6) Alprazolam 1 mg 11/19/20 21:00 11/19/20 20:57 Alprazolam 1 Mg Tab PO 1 mg HS SETH Administration Amlodipine Besylate 5 mg 11/19/20 09:00 11/19/20 08:28 Amlodipine 5 Mg Tab PO 5 mg DAILY SETH Administration Aspirin 81 mg 11/19/20 09:00 11/19/20 08:28 Aspirin 81 Mg Enteric Coated Tablet PO 81 mg DAILY SETH Administration Atorvastatin Calcium 40 mg 11/19/20 21:00 11/19/20 20:57 Atorvastatin Calcium 40 Mg Tab PO 40 mg HS SETH Administration Bumetanide 0.5 mg 11/19/20 21:00 11/19/20 20:59 Bumetanide 1 Mg/4 Ml Vial IVP 0.5 mg BID SETH Administration Clopidogrel Bisulfate 75 mg 11/19/20 09:00 11/19/20 08:29 Clopidogrel Bisulfate 75 Mg Tab PO 75 mg DAILY SETH Administration Famotidine 20 mg 11/19/20 09:00 11/19/20 08:28 Famotidine 20 Mg Tab PO 20 mg 0900 SETH Administration Ceftriaxone Sodium 1 gm/ 100 mls @ 200 mls/hr 11/19/20 21:00 11/19/20 20:57 Sodium Chloride IVPB 100 mls HS SETH Administration Azithromycin 500 mg/ Sodium 250 mls @ 250 mls/hr 11/19/20 21:00 11/20/20 0 0:12 Chloride IVPB 250 mls Q24HR SETH Administration Metoprolol Succinate 200 mg 11/19/20 09:00 11/19/20 08:28 Metoprolol Succinate Xl 100 Mg Tab PO 200 mg DAILY SETH Administration Morphine Sulfate 2 mg 11/18/20 22:08 11/20/20 08:05 Morphine 2 Mg/Ml Vial SLOW IVP 2 mg Q4H PRN Administration severe pain 4-10 Nitroglycerin 1 inch 11/19/20 14:00 11/20/20 07:59 Nitroglycerin 2% Ointment 1 Inch/1 Gm Packet TOP 1 inch Q8HR SETH Administration Polyethylene Glycol 17 gm 11/19/20 09:00 11/19/20 08:29 Polyethylene Glycol 3350 17 Gm Packet PO 17 gm DAILY SETH Administration - Exam General Appearance: ill appearing ENT: normocephalic atraumatic Neck: supple, no JVD Heart - other findings: Tachycardia Respiratory: normal chest expansion, tachypneic Respiratory - other findings: Use of accessory muscles of respiration Extremities: no cyanosis, no clubbing Neurological: cranial nerve grossly intact Hosp A/P (1) Acute kidney injury superimposed on chronic kidney disease Code(s): N17.9 - ACUTE KIDNEY FAILURE, UNSPECIFIED; N18.9 - CHRONIC KIDNEY DISEASE, UNSPECIFIED Status: Acute (2) NSTEMI (non-ST elevated myocardial infarction) Code(s): I21.4 - NON-ST ELEVATION (NSTEMI) MYOCARDIAL INFARCTION Status: Acute (3) Acute on chronic heart failure with preserved ejection fraction Code(s): I50.33 - ACUTE ON CHRONIC DIASTOLIC (CONGESTIVE) HEART FAILURE Status: Acute (4) Bilateral pulmonary infiltrates on chest x-ray Code(s): R91.8 - OTHER NONSPECIFIC ABNORMAL FINDING OF LUNG FIELD Status: Acute - Plan Non-STEMI and acute on chronic diastolic heart failure: The patient is on aspirin, Plavix, Lovenox, Toprol-XL and nitrate. He is complaining of chest pain this morning after his episode of hypoxia. The patient has been stabilized on BiPAP at the moment and he saturating well. Tachypnea is subsiding. Nitroglycerin for chest pain. Patient will be transferred to the CCU for further monitoring. Cardiology contemplating cardiac cath tomorrow. Creatinine level is elevated above baseline. This could be related to cardiorenal syndrome. He is receiving low-dose Bumex. Repeat CBC and BMP. COVID-19 PCR and influenza test are negative.
[2020-11-20] MEDS ORDERED: Enoxaparin Sodium 40 MG/0.4 ML SYRINGE SC SCH (09:00)
[2020-11-20 09:01] LABS: #Lymphocytes 1.1 thou/uL (1.20-3.40); #Neutrophils 9.3 thou/uL (1.40-6.50); %Basophils 0.2 % (0.0-1.0); %Monocytes 8.9 % (0.0-10.0); %Neutrophils 80.9 % (42.0-75.0); Hemoglobin 11.7 g/dL (14.0-18.0); Mean Corpuscular HGB CONC 35.1 g/dL (32.0-36.0); Mean Corpuscular Hemoglobin 32.8 pg (27.0-31.0); Mean Corpuscular Volume 93.5 fL (78.0-98.0); Mean Platelet Volume 6.6 fL (7.4-10.4); Platelet Count 281 thou/uL (130-400); RBC Distribution Width 12.6 % (11.5-14.5); Red Blood Cell (RBC) Count 3.57 mill/uL (4.70-6.10); White Blood Cell (WBC) Count 11.5 thou/uL (4.8-10.8)
--- NOTE | 2020-11-20 09:07 | RAD ---
XR Chest 1 View Portable History: Congestive heart failure Comparison: Radiograph 2 days prior Findings: Performed perihilar airspace opacities are similar. No pneumothorax. No pneumomediastinum. No acute osseous abnormality. Cardiac silhouette and mediastinal contours are similar. Impression: No significant change in the radiographic appearance of the chest with multifocal pneumon ia favored over congestive heart failure.
[2020-11-20 09:21] LABS: Anion Gap 19 mmol/L (10-20); BUN (Urea Nitrogen) 41 mg/dL (8.4-25.7); Calc. Creatinine Clearance 20 mL/min (70-130); Carbon Dioxide 17 mmol/L (23-31); Chloride 105 mmol/L (98-107); Glucose 170 mg/dL (83-110); Potassium 4.3 mmol/L (3.5-5.1); Sodium 137 mmol/L (136-145)
[2020-11-20 09:28] LABS: Troponin I 5.772 ng/mL (< 0.028)
[2020-11-20] MEDS ORDERED: Heparin 1,000 UNITS/ML VIAL SLOW IVP SCH (09:30)
[2020-11-20] MEDS: Clopidogrel Bisulfate 75 MG TAB PO SCH (10:25)
[2020-11-20] MEDS: Aspirin 81 mg Enteric Coated Tablet PO SCH (10:25)
[2020-11-20] MEDS: Famotidine 20 MG TAB PO SCH (10:25)
[2020-11-20] MEDS: Polyethylene Glycol 3350 17 GM Packet PO SCH (10:25)
[2020-11-20] MEDS: Bumetanide 1 MG/4 ML VIAL IVP SCH ×3 (10:26→20:13)
[2020-11-20] MEDS: Amlodipine 5 MG TAB PO SCH (10:45)
[2020-11-20 11:28] LABS: Magnesium 2.4 mg/dL (1.6-2.6)
--- NOTE | 2020-11-20 11:28 | PRG ---
DATE OF SERVICE: 11/20/2020 SUBJECTIVE: Mr. Robles has worsened today. He is more short of breath. He is also having chest pain earlier. He is on the BiPAP now, but he says he is not having pain now, but he is extremely short of breath. His respiratory rate earlier was 42 down to 31 on the BiPAP. Heart rate is in the 80s. He did receive his long-acting beta cherise yesterday, but he is having trouble swallowing now. The patient looks very ill. OBJECTIVE: VITAL SIGNS: His blood pressure as mentioned 137/80. LUNGS: There are diffuse rales. CARDIAC: He has no new murmur, rub, or gallop. ABDOMEN: Soft, nontender. EXTREMITIES: Still warm and dry. IMAGING DATA: Chest x-ray shows diffuse infiltrates. I suspect this is probably congestive heart failure. LABORATORY DATA: BNP is increased up to 1539. Troponin 5.7. Creatinine is 2.56. ASSESSMENT: 1. Multi-system disease, now he is in congestive heart failure. 2. Renal failure. 3. [id number] infarction. 4. Possible pneumonia, but I think most of his problem is cardiac. 5. He is on BiPAP. PLAN: 1. Discussed the situation with the patient. Also discussed in detail with the patient's son who is at the bedside. Discussed that he is critically ill now. It is unclear whether he will survive these episodes. For now, the patient does request full code. He initially he did not want to do, but now he has decided he does wish to be resuscitated according to the son. Prognosis is very guarded. Survival uncertain. For now, we will do the following one given intravenous Lasix. 2. Change to intravenous heparin. 3. He is on BiPAP. Job ID: [id number]
[2020-11-20] MEDS ORDERED: Acetaminophen 650 MG Suppository PR PRN (11:38)
--- NOTE | 2020-11-20 13:32 | PDOC.PALCO ---
Palliative Care Consult - Consult Details Requesting Physician: Dr Hyman/Dr Mccartney Reason for Consult: goals of care, advance directives assistance, family support, complex decision-making - Pertinent HPI Mr Robles is an 89 year old male who is well known to the Palliative care team. He was recently discharged 11/15/2020. He lives in a private home setting with his , son and paid caregiver. He had an onset of shortness of breath, neck pain, and left sided jaw pain that onset 4 days ago just after discharge and progressively became worse. Remains Covid negative. At time of evaluation in the emergency room negative for chest pain, nauseam vomiting, fever, chills/ Positive for generalized body aches. 88% on room air and increased to 90% with non rebreather. Admitted for suspected pneumonia, and elevated troponin. Secondary to CKD cath not performed. Admitted and patient declined respiratory sanchez and is now on a non rebreather. Son at bedside. - Pertinent PMH HTN, CVA, [place] - Social History Smoking Status: Never smoker Smoking: no tobacco exposure Alcohol Use: none Drug Use History: none Living Situation: independent, - Medications MAR Reviewed: Yes - Allergies Allergies/Adverse Reactions: Allergies Allergy/AdvReac Type Severity Reaction Status Date / Time No Known Drug Allergies Allergy Verified 08/30/15 19:37 - Subjective On Bipap, negative for chest pain. Confused and fatigued. Tachypnea. Poor intake, mild dysphagia. Pallor. Assist for ADL. Son at Bedside. Poor Review of systems secondary to increase in lethargy. - ROS Constitutional: alert, weakness ENT: difficulty swallowing Respiratory: shortness of breath Cardiology: other (Negative fo rchest pain, palpitatins) - Objective Vital Signs: Vital Signs - Most Recent Temp Pulse Resp BP Pulse Ox 99.2 F 92 32 H 139/80 93 L 11/20/20 11:22 11/20/20 11:22 11/20/20 11:22 11/20/20 11:22 11/20/20 11:22 Palliative Performance Scale: 20 - Physical Exam Constitutional: encephalitic, ill appearing Respiratory: accessory muscle use, diminished lung sound, labored respirations, tachypnea Cardiovascular: RRR, diminished peripheral pulses Gastrointestinal: soft, non-tender Musculoskeletal: no cyanosis, no clubbing Neurology: moves all 4 limbs, no focal deficits Skin: cap refill <2 seconds Deviation from normal: Increase in pallor Deviation from normal: Oreinted to self, family, place - Problem List (1) Palliative care encounter Code(s): Z51.5 - ENCOUNTER FOR PALLIATIVE CARE Current Visit: Yes Status: Acute (2) Acute kidney injury superimposed on chronic kidney disease Code(s): N17.9 - ACUTE KIDNEY FAILURE, UNSPECIFIED; N18.9 - CHRONIC KIDNEY DISEASE, UNSPECIFIED Current Visit: Yes Status: Acute (3) Acute on chronic heart failure with preserved ejection fraction Code(s): I50.33 - ACUTE ON CHRONIC DIASTOLIC (CONGESTIVE) HEART FAILURE Current Visit: Yes Status: Acute (4) Chronic kidney disease (CKD) stage G3a/A2, moderately decreased glomerular filtration rate (GFR) between 45-59 mL/min/1.73 square meter and albuminuria creatinine ratio between 30-299 mg/g Code(s): N18.31 - CHRONIC KIDNEY DISEASE, STAGE 3A Current Visit: No Status: Acute (5) NSTEMI (non-ST elevated myocardial infarction) Code(s): I21.4 - NON-ST ELEVATION (NSTEMI) MYOCARDIAL INFARCTION Current Visit: No Status: Acute - Plan/Recommendations Plan: Patient fatigued and lethargic. Revisited resuscitation status with patient son and surrogate decision maker daughter Jaimie. Requested to return to DNAR status that had been in place last hospitalization. In reviewing recent multiple hospital admissions and recent decline of their father they are requesting for him to transition to the home setting for overlay of hospice care. They do not desire to seek aggressive measures or therapies but manage symptoms with comfort measures surrounded by family in the private home setting. No prior home health anyone can recall. No preference on Hospice companies. Currently with paid caregiver Kyung Laughlin in the home setting (family said to call with any questions) [phone] Mccartney and Dr Hyman. DNAR completed Communicated with Case management/Alice Spoke with son SAYRA at bedside. He provided his number [phone] Communicated with patient daughter Jaimie via phone. [phone] Emotional support and therapeutic listening offered to both. [70] minutes spent on this encounter with >50% of the time in counseling and coordination of care. Thank you for this very appropriate consult.
--- NOTE | 2020-11-20 15:03 | PRG ---
DATE OF SERVICE: 11/20/2020 SUBJECTIVE: The patient is floridly confused. I will keep his BiPAP on. He has been made DNR now and should probably focus on comfort care rather than treatment of his acute problems. OBJECTIVE: VITAL SIGNS: Temperature is 100.1, pulse 89, respirations 30, O2 saturation 96% BiPAP, blood pressure 127/83. GENERAL: He looks disheveled. LUNGS: He has coarse crackles bilaterally. HEART: Rhythm is tachycardic. ABDOMEN: Soft. EXTREMITIES: Edematous. LABORATORY DATA: White blood cell count 11.5, hematocrit 33.4, and platelet count 281. He has had 2 different COVID tests negative. Sodium 137, potassium 4.3, chloride 105, CO2 of 17, BUN 41, creatinine 2.5, glucose 170. ASSESSMENT: Pneumonia versus heart failure with progressively deteriorating course. RECOMMENDATIONS: I would recommend comfort care. Morphine as needed for breakthrough dyspnea. Job ID: [id number]
--- NOTE | 2020-11-20 16:56 | PDOC.DS.DS ---
Provider - Provider Date of Admission: 11/18/20 21:05 Date of Discharge: 11/20/20 Admitting Provider: Giancarlo Gonzales MD Primary Care Physician: Zac Driver MD Course - Hospital Course Hospital Course: 89 yo M with PMH of CAD admitted to the hospital for STEMI and acute pulmonary edema. His management was complicated due renal failure making it difficult to remove fluids or presue cardiac cath. He was covered with antibiotics empirically for suspected PNA. His respiratory status deteriorated and after consulting with palliative care team his family opted to pursue hospice care. Resuscitation Status: 11/20/20 11:48 Resuscitation Status Routine Co-Sign Provider: Resuscitation Status: DNAR: NO Resuscitation Discussed with: Patient son and daughter Additional comments: Patient confused. Prior hospitalization patient was a DNAR. Discussed with patient children and they are requesting to have DNAR. - Labs Lab Results: 11/20/20 08:55 11/20/20 08:55 Abnormal Lab Results - Last 48 hrs 11/18/20 19:37: Lactic Acid 3.3 H 11/18/20 19:37: RBC 3.75 L, Hgb 12.2 L, Hct 35.1 L, MCH 32.6 H, MPV 6.5 L, Lymphocytes % 18.3 L, Monocytes % 13.5 H, Monocytes # 1.0 H 11/18/20 19:37: Carbon Dioxide 21 L, BUN 36 H, Creatinine 2.29 H, AST 52 H, Alkaline Phosphatase 117 H, Serum Total Protein 8.8 H, Globulin 5.2 H, Albumin/Globulin Ratio 0.7 L 11/18/20 19:37: APTT 36.7 H 11/18/20 19:37: Troponin I 5.558 H* 11/18/20 20:59: Urine Protein 200 A, Urine Blood Trace A 11/18/20 22:10: Troponin I 4.667 H* 11/19/20 01:28: Carbon Dioxide 17 L, BUN 40 H, Creatinine 2.30 H, Calcium 7.6 L 11/19/20 01:28: RBC 3.77 L, Hgb 12.7 L, Hct 35.3 L, MCH 33.7 H, MPV 7.0 L, Neutrophils % 89.6 H, Lymphocytes % 7.3 L, Lymphocytes # 0.4 L 11/19/20 01:28: B-Natriuretic Peptide 875.1 H 11/19/20 01:32: Troponin I 5.708 H* 11/20/20 08:54: Troponin I 5.772 H* 11/20/20 08:55: B-Natriuretic Peptide 1539.0 H 11/20/20 08:55: Carbon Dioxide 17 L, BUN 41 H, Creatinine 2.56 H 11/20/20 08:55: WBC 11.5 H, RBC 3.57 L, Hgb 11.7 L, Hct 33.4 L, MCH 32.8 H, MPV 6.6 L, Neutrophils % 80.9 H, Lymphocytes % 10.0 L, Neutrophils # 9.3 H, Lymphocytes # 1.1 L, Monocytes # 1.0 H Microbiology - Entire Visit 11/18/20 19:37 Venous blood - Right Hand Blood Culture - Preliminary NO GROWTH AT 48 HOURS 11/18/20 19:37 Venous blood - Left Arm Blood Culture - Preliminary NO GROWTH AT 48 HOURS - Physical Exam Vitals: Vital Signs (12 hours) Temp Pulse Resp BP Pulse Ox 11/20/20 15:45 94 32 H 116/70 96 11/20/20 15:20 99.9 F H 91 28 H 110/62 96 11/20/20 14:11 89 11/20/20 13:20 100.1 F H 89 30 H 127/83 96 11/20/20 12:15 100.1 F H 11/20/20 11:22 99.2 F 92 32 H 139/80 93 L 11/20/20 11:01 101.0 F H 92 31 H 139/80 94 L 11/20/20 10:58 92 11/20/20 10:45 92 11/20/20 09:58 92 31 H 94 L 11/20/20 09:04 100.8 F H 96 35 H 137/80 94 L 11/20/20 07:55 98.4 F 105 H 42 H 127/83 90 L 11/20/20 07:25 93 L Weight Admit Weight 158 lb 11.68 oz Weight 158 lb 11.68 oz Most Recent Monitor Data Heart Rate from ECG 89 NIBP 118/80 NIBP BP-Mean 92 Respiration from ECG 37 SpO2 87 Physical Exam: The patient was seen and examined on the day of discharge. Problem - Problem (1) Acute kidney injury superimposed on chronic kidney disease Code(s): N17.9 - ACUTE KIDNEY FAILURE, UNSPECIFIED; N18.9 - CHRONIC KIDNEY DISEASE, UNSPECIFIED Status: Acute (2) NSTEMI (non-ST elevated myocardial infarction) Code(s): I21.4 - NON-ST ELEVATION (NSTEMI) MYOCARDIAL INFARCTION Status: Acute (3) Acute on chronic heart failure with preserved ejection fraction Code(s): I50.33 - ACUTE ON CHRONIC DIASTOLIC (CONGESTIVE) HEART FAILURE Status: Acute (4) Bilateral pulmonary infiltrates on chest x-ray Code(s): R91.8 - OTHER NONSPECIFIC ABNORMAL FINDING OF LUNG FIELD Status: Acute Plan - Discharge Medications Home Medications: Medication Instructions Recorded Confirmed Type HYDROcodone Bit/APAP 5/325 [[place]] 1 tab PO BID 08/30/15 11/19/20 History Amlodipine [Norvasc] 5 mg PO DAILY #0 tab 08/31/15 11/19/20 Rx Atorvastatin Calcium [Lipitor] 40 mg PO HS #30 tab 10/13/20 11/19/20 Rx Clopidogrel Bisulfate [Plavix] 75 mg PO DAILY #30 tab 10/13/20 11/19/20 Rx Metoprolol Succinate [Toprol XL] 200 mg PO DAILY #60 tab 10/13/20 11/19/20 Rx ALPRAZolam [Xanax] 1 mg PO HS 11/13/20 11/19/20 History Acetaminophen [Tylenol Regular 325 mg PO Q12H PRN 11/13/20 11/19/20 History Strength] Aspirin [Ecotrin Low Strength] 81 mg PO DAILY #30 tab 11/15/20 11/19/20 Rx Isosorbide Dinitrate [Isordil] 5 mg PO BID #60 tab 11/15/20 11/19/20 Rx Allergies: No Known Drug Allergies Allergy (Verified 08/30/15 19:37) PER ORDER - Follow up Plan Referrals: Zac Driver MD [Primary Care Provider] - Disposition: HOME Quality - Care Measures CORE MEASURES:: N/A
[2020-11-20] MEDS: Atorvastatin Calcium 40 MG TAB PO SCH (20:12)
[2020-11-20] MEDS: ALPRAZolam 1 MG TAB PO SCH (20:12)
[2020-11-20] MEDS: cefTRIAXone\\ROCEPHIN 1 GM in Sodium Chloride 0.9% 100 ML IVPB SCH (20:13)
[2020-11-21] MEDS: Morphine 2 MG/ML VIAL SLOW IVP PRN (02:30)
[2020-11-21 04:57] LABS: #Lymphocytes 0.8 thou/uL (1.20-3.40); #Monocytes 0.8 thou/uL (0.11-0.59); #Neutrophils 6.1 thou/uL (1.40-6.50); %Basophils 0.1 % (0.0-1.0); %Lymphocytes 10.1 % (21.0-51.0); %Monocytes 10.9 % (0.0-10.0); %Neutrophils 78.9 % (42.0-75.0); Hemoglobin 10.4 g/dL (14.0-18.0); Mean Corpuscular HGB CONC 32.8 g/dL (32.0-36.0); Mean Corpuscular Hemoglobin 30.7 pg (27.0-31.0); Mean Corpuscular Volume 93.5 fL (78.0-98.0); Mean Platelet Volume 6.8 fL (7.4-10.4); Platelet Count 226 thou/uL (130-400); RBC Distribution Width 12.4 % (11.5-14.5); Red Blood Cell (RBC) Count 3.39 mill/uL (4.70-6.10); White Blood Cell (WBC) Count 7.7 thou/uL (4.8-10.8)
[2020-11-21 05:25] LABS: Anion Gap 17 mmol/L (10-20); BUN (Urea Nitrogen) 45 mg/dL (8.4-25.7); Calc. Creatinine Clearance 20 mL/min (70-130); Calcium 7.6 mg/dL (7.8-10.44); Carbon Dioxide 23 mmol/L (23-31); Chloride 104 mmol/L (98-107); Glucose 180 mg/dL (83-110); Magnesium 2.4 mg/dL (1.6-2.6); Potassium 4.2 mmol/L (3.5-5.1); Sodium 140 mmol/L (136-145)
[2020-11-21] MEDS: Nitroglycerin 2% Ointment 1 INCH/1 GM Packet TOP SCH ×2 (05:57→15:26)
--- NOTE | 2020-11-21 11:16 | PRG ---
DATE OF SERVICE: 11/21/2020 SUBJECTIVE: The patient is in much better condition this morning. I think this has been held by his daughter being available at bedside. OBJECTIVE: VITAL SIGNS: His temperature 98.7, pulse of 98, O2 saturation 94% on 40% BiPAP. HEENT: Unremarkable. NECK: No adenopathy or JVD. LUNGS: Scattered crackles. CARDIAC: S1 and S2. Regular. ABDOMEN: Soft. EXTREMITIES: No edema. ASSESSMENT: Pulmonary edema versus pneumonia. PLAN: Basically going home on hospice with oxygen. No further recommendations at this time. We will sign off. Job ID: [id number]
--- NOTE | 2020-11-21 11:22 | PDOC.PALPN ---
Palliative Progress Note - Subjective Remains on Bipap, daughter at bedside. Lethargic, labored respirations. Difficult to fully appreciate review of systems secondary to respiratory compromise - Objective Vital Signs: Vital Signs - Most Recent Temp Pulse Resp BP Pulse Ox 98.9 F 108 H 32 H 130/75 93 L 11/21/20 11:02 11/21/20 11:02 11/21/20 11:02 11/21/20 11:02 11/21/20 11:02 - Physical Exam Constitutional: ill appearing, mild distress HEENT: EOMI, moist MMs Respiratory: no wheezing, accessory muscle use, diminished lung sound, labored respirations, tachypnea Cardiovascular: RRR, diminished peripheral pulses Gastrointestinal: soft, non-tender Genitourinary: continent Musculoskeletal: no cyanosis, no clubbing Neurology: moves all 4 limbs, no focal deficits Skin: cap refill <2 seconds, no lesions, no rash Deviation from normal: Pallor Deviation from normal: Lethargic, work of breathing. - Assessment (1) Palliative care encounter Code(s): Z51.5 - ENCOUNTER FOR PALLIATIVE CARE Current Visit: Yes Status: Acute (2) Acute kidney injury superimposed on chronic kidney disease Code(s): N17.9 - ACUTE KIDNEY FAILURE, UNSPECIFIED; N18.9 - CHRONIC KIDNEY DISEASE, UNSPECIFIED Current Visit: Yes Status: Acute (3) Acute on chronic heart failure with preserved ejection fraction Code(s): I50.33 - ACUTE ON CHRONIC DIASTOLIC (CONGESTIVE) HEART FAILURE Current Visit: Yes Status: Acute (4) Chronic kidney disease (CKD) stage G3a/A2, moderately decreased glomerular filtration rate (GFR) between 45-59 mL/min/1.73 square meter and albuminuria creatinine ratio between 30-299 mg/g Code(s): N18.31 - CHRONIC KIDNEY DISEASE, STAGE 3A Current Visit: No Status: Acute (5) NSTEMI (non-ST elevated myocardial infarction) Code(s): I21.4 - NON-ST ELEVATION (NSTEMI) MYOCARDIAL INFARCTION Current Visit: No Status: Acute - Plan Plan: Hospice having complications locating adequate home o2 supply. Patient and family hopeful for transition to home setting this afternoon. [place]: Transition to home setting with [facility] for management of symptoms OOHDNAR completed CM working with transition to home setting. Emotional support and Therapeutic listening offered to patient daughter. Palliative care will sign off as goals identified. Thank you for this very appropriate consult. [30] minutes spent on this encounter with >50% of the time in counseling and coordination of care. - ROS Non Response: due to mental status Constitutional: weakness Respiratory: shortness of breath
--- NOTE | 2020-11-21 12:02 | PDOC.BPN ---
- Brief Progress Note Encounter Date: 11/21/20 Patient was appreciated discharge to hospice yesterday. He could not go home as they are working on providing the oxygen equipment. He will go home once the equipment are ready.
--- NOTE | 2020-11-21 12:17 | PQF ---
CLINICAL DOCUMENTATION CLARIFICATION FORM: Dear Dr. Mccartney Date: 11/21/2020 Please exercise your independent, professional judgment in responding to the clarification form. Clinical indicators are provided on the bottom of this form for your review. Please check appropriate box(s): [ > ] Acute hypoxic respiratory failure [ ] Hypoxia without respiratory failure [ ] Other diagnosis [ ] Unable to determine In addition, please specify: Present on Admission (POA): [ >] Yes [ ] No [ ] Unable to determine For continuity of documentation, please document condition throughout progress notes and discharge summary. Thank You. CLINICAL INDICATORS - SIGNS / SYMPTOMS / LABS / RESULTS AND LOCATION IN EMR *ED 11/18: * Per EMS the patients SPO2 was 88% on room air. They place him on a nonrebreather which jenna his SPO2 to 90%. * Vital Signs: 83% Room Air to 90-96% High flow/NRB Oxygen RR 26-30 Pulse 97-95 * Hypoxia *H&P 11/18 (Aterno): Respiratory: Reports: shortness of breath, SOB with exertion *Consultation 11/19 (Aaron): * Hypoxemia, pulmonary infiltrates * Lungs: He has a few inspiratory crackles in both bases. *PN 11/20 (Ambrocior): The nurse found him hypoxic and in respiratory distress. RISK FACTORS / RESULTS AND LOCATION IN EMR *H&P 11/18 (Aterno): Pneumonia *PN 11/19 (Alnazeer): Acute on chronic heart failure with preserved ejection fraction TREATMENTS / RESULTS AND LOCATION IN EMR *ED 11/18: Oxygen, Dexamethasone IV, Proventil Inhaler *Pulmonology Consultation 11/19 (Aaron) *Reports (EMR): Chest X-Ray 11/18, 11/20 *PN 11/20 (Alnazeer): Stabilized on BiPAP Patient will be transferred to the CCU for further monitoring Thank you, Ana CDS/Poll Clerk Signature: Ana Brooke RN, CDS Phone #: [phone] [email or web address] This is a permanent part of the Medical Record [facility]
[2020-11-21] MEDS: HYDROcodone/Acetaminophen 5/325 mg Tablet PO PRN (14:06)
[2020-11-21] MEDS: Polyethylene Glycol 3350 17 GM Packet PO SCH (15:26)
[2020-11-21] MEDS: Famotidine 20 MG TAB PO SCH (15:27)
[2020-11-21] MEDS: Clopidogrel Bisulfate 75 MG TAB PO SCH (15:27)
[2020-11-21] MEDS: Aspirin 81 mg Enteric Coated Tablet PO SCH (15:28)
[2020-11-21] MEDS: Amlodipine 5 MG TAB PO SCH (15:28)
[2020-11-21] MEDS: Bumetanide 1 MG/4 ML VIAL IVP SCH (15:28)
[2020-11-21 15:48] VITALS: BP 104/61; TEMP 99
--- NOTE | 2020-11-21 17:16 | PDOC.CPN ---
- Subjective Date: 11/21/20 Time: 15:15 Interval history: No overnight events, patient on bi-pap, daughter at bedside. Planning to go home on hospice today. - Review of Systems General: denies: fever/chills, weight/appetite/sleep changes, night sweats, fat igue Respiratory: reports: shortness of breath Cardiovascular: denies: chest pain, palpitation, edema, paroxysmal nocturnal dyspnea, orthopnea Gastrointestinal: denies: nausea, vomiting, diarrhea, constipation, abd pain, GI bleeding Musculoskeletal: denies: pain, tenderness, stiffness, swelling, art hritis/arthralgias Neurological: denies: numbness, syncope, seizure, weakness - Objective Allergies/Adverse Reactions: Allergies Allergy/AdvReac Type Severity Reaction Status Date / Time No Known Drug Allergies Allergy Verified 08/30/15 19:37 Vital Signs & Weight: Vital Signs Temp Pulse Resp BP Pulse Ox 11/21/20 15:33 89 11/21/20 15:28 108 H 11/21/20 15:15 99.0 F 109 H 38 H 104/61 93 L 11/21/20 11:02 98.9 F 108 H 32 H 130/75 93 L 11/21/20 08:10 96 11/21/20 07:46 96 11/21/20 07:16 98.7 F 98 32 H 134/78 94 L 11/21/20 06:00 86 25 H 134/84 94 L Admit Weight 158 lb 11.68 oz Weight 158 lb 11.68 oz - Physical Exam General: other (alert and oriented to name) HEENT: mucus membranes dry Neck: no JVD/HJR, no bruit Cardiac: regular rate and rhythm, tachycardia Lungs: decreased breath sounds, other (wearing bi-pap) Neuro: grossly intact Abdomen: active bowel sounds, soft Extremities: no cyanosis, no clubbing, no edema, 2+ Posterior Tibial, 2+ Dorsalis Pedus Skin: clear Musculoskeletal: no pain - Labs Result Diagrams: 11/21/20 04:30 11/21/20 04:30 Troponin/CKMB CK-MB (CK-2) 2.9 ng/mL (0-6.6) 11/18/20 19:37 Troponin I 5.772 ng/mL (< 0.028) H* 11/20/20 08:54 - EKG Interpretation EKG Method: Telemetry EKG: sinus rhythm EKG shows: tachycardia - Assessment/Plan Assessment/Plan: Patient has not had any chest pain today, he states he is feeling better today. He is on bi-pap, he is planning to go home on hospice today. Will follow-up in 2-4 weeks as outpatient with telehealth appointment.
--- NOTE | 2020-11-27 19:38 | EKG ---
Test Reason : CHEST PAIN Blood Pressure : / mmHG Vent. Rate : 104 BPM Atrial Rate : 104 BPM P-R Int : 186 ms QRS Dur : 122 ms QT Int : 344 ms P-R-T Axes : 058 -47 132 degrees QTc Int : 452 ms Sinus tachycardia Left axis deviation Left bundle branch block Abnormal ECG No previous ECGs available Confirmed by MONIQUE GRIMALDO MD ([id number]) on 11/27/2020 7:37:47 PM Referred By: MELONIE Confirmed By:MONIQUE GRIMALDO MD
== END 2020-11-21 16:15 | disposition hospice, home (50) | DRG 280 ==
LOC: ERS 19:10 → ERHOLD 21:05 → CCU 11-19 01:01 → 2SE 11-19 16:34
PROVIDERS: ADMIT Internal Medicine; ATTEND Internal Medicine
PROC: 5A09457 Assistance with Respiratory Ventilation, 24-96 Consecutive Hours, Continuous Positive Airway Pressure (ICD-10-PCS; principal; 2020-11-20)
DX: I21.4 Non-ST elevation (NSTEMI) myocardial infarction (principal); J96.01 Acute respiratory failure with hypoxia; I50.33 Acute on chronic diastolic (congestive) heart failure; J18.9 Pneumonia, unspecified organism; I13.0 Hypertensive heart and chronic kidney disease with heart failure and stage 1 through stage 4 chronic kidney disease, or unspecified chronic kidney disease; N17.9 Acute kidney failure, unspecified; Z20.822 Contact with and (suspected) exposure to COVID-19; R91.8 Other nonspecific abnormal finding of lung field; N18.31 Chronic kidney disease, stage 3a; I25.10 Atherosclerotic heart disease of native coronary artery without angina pectoris; Z51.5 Encounter for palliative care; Z66 Do not resuscitate; Z79.899 Other long term (current) drug therapy; I25.2 Old myocardial infarction; Z86.73 Personal history of transient ischemic attack (TIA), and cerebral infarction without residual deficits; Z98.49 Cataract extraction status, unspecified eye; Z90.89 Acquired absence of other organs
CPT/HCPCS: 0240U; 36415; 36416; 71045; 80048; 80053; 81003; 81015; 82550; 82553; 83605; 83735; 83880; 84484; 85025; 85610; 85730; 87040; 87635; 93005; 93010; 94660; 94760; 96365; 96366; 96367; 96368; 96372; 96375; J0456; J0692; J0696; J1100; J1644; J1650; J1956; J2270; J3010; J3370; J3475; J3490; J7050; U0003; U0005